=== PATIENT | male | born 1950 | race Caucasian/White ===

== ENCOUNTER 2018-04-23 14:51 | Inpatient (IN) | payer OTHER ==
[2018-04-23] MEDS ORDERED: METOPROLOL TARTRATE 5 MG/5 ML INJ IV ONE (15:12)
[2018-04-23] MEDS ORDERED: NA CHLORIDE 0.9% 1,000 ML ONE ×2 (15:19→18:54)
--- NOTE | 2018-04-23 15:33 | EKG ---
Test Date: 2018-04-23 Test Time: 14:56:29 Executive Director: WILL MEASUREMENT RESULTS: Intervals: Rate: 123 IA: QRSD: 132 QT: 348 QTc: 498 [place]: P: IA: QRS: -53 T: 53 INTERPRETIVE STATEMENTS: Atrial fibrillation with rapid ventricular response Left axis deviation Right bundle branch block Abnormal ECG Compared to ECG 07/10/2017 15:02:35 Sinus bradycardia no longer present Myocardial infarct finding no longer present Electronically Signed On 04-23-18 15:32:49 [employer] by Se Erazo
--- NOTE | 2018-04-23 15:45 | RAD REPORT ---
EXAM DESCRIPTION: RAD - Chest Single View - 04/23/2018 3:39 pm CLINICAL HISTORY: palpitation Chest pain. COMPARISON: Chest Single View dated 07/10/2017; Chest Single View dated 01/28/2017; Chest Single View dated 11/30/2016; CHEST SINGLE VIEW dated 08/31/2011 FINDINGS: Portable technique limits examination quality. The lungs are grossly clear. The heart is normal in size. No displaced fractures. IMPRESSION: No acute intrathoracic process suspected.
[2018-04-23 15:58] LABS: Albumin 3.4 g/dL (3.4-5.0); Bilirubin Direct 0.6 mg/dL (0-0.2); Bilirubin Total 1.7 mg/dL (0.2-1.0); Magnesium 1.8 mg/dL (1.8-2.4); Potassium 4.3 mmol/L (3.5-5.1); Protein, Total 7.1 g/dL (6.4-8.2); Troponin (Emerg Dept Use Only) 0.02 ng/mL (0.0-0.045)
[2018-04-23] MEDS ORDERED: ENOXAPARIN 80 MG/0.8 ML SQ ONE (16:05)
[2018-04-23 16:08] LABS: Protime INR 1.13
--- NOTE | 2018-04-23 16:30 | EDPHYS ---
Physician Documentation [facility] Name: Noble Briscoe Age: 67 yrs Sex: Male : 1950 Arrival Date: 04/23/2018 Time: 14:58 Bed 17 Private MD: ED Physician aRgini Rothman HPI: 04/23 15:03 This 67 yrs old Male presents to ER via EMS with complaints of General ma2 Weakness. 15:03 Context: The symptoms occur with anxiety. Onset: The symptoms/episode began/occurred ma2 gradually, 1 week(s) ago. Duration: The patient or guardian reports a single episode, that is still ongoing, The patient or guardian reports multiple episodes. Associated signs and symptoms: Pertinent positives: anxiety, Pertinent negatives: chest pain, lightheadedness, nausea, SOB, syncope, near-syncope. Severity of symptoms: At their worst the symptoms were moderate in the emergency department the symptoms are unchanged. The patient has experienced similar episodes in the past. Historical: - Allergies: 15:02 No Known Allergies; em - Home Meds: 17:41 Xarelto 20 mg Oral tab 1 tab once daily [Active]; amiodarone 200 mg Oral tab 1 tab once em daily [Active]; - PMHx: 15:02 Atrial Fib; Cirrhosis; Depression; Hypertension; em - PSHx: 15:02 Ablation; em - Immunization history:: Adult Immunizations up to date. - Social history:: Smoking status: Patient uses tobacco products, smokes one pack cigarettes per day. Patient/guardian denies using alcohol, street drugs, The patient lives with family. - Ebola Screening: : Patient negative for fever greater than or equal to 101.5 degrees Fahrenheit, and additional compatible Ebola Virus Disease symptoms Patient denies exposure to infectious person Patient denies travel to an Ebola-affected area in the 21 days before illness onset No symptoms or risks identified at this time. - Family history:: not pertinent. ROS: 15:03 Constitutional: Negative for fever, chills, and weight loss, Respiratory: Negative for ma2 shortness of breath, cough, wheezing, and pleuritic chest pain, Abdomen/GI: Negative for abdominal pain, nausea, diarrhea, and constipation, Allergy/Immunology: Negative for hives, rash, and allergies, Endocrine: Negative for neck swelling, polydipsia, polyuria, polyphagia, and marked weight changes. 15:03 Cardiovascular: Positive for palpitations, Negative for chest pain, edema, orthopnea. Exam: 15:03 Constitutional: This is a well developed, well nourished patient who is awake, alert, ma2 and in no acute distress. Head/Face: Normocephalic, atraumatic. 15:03 Neck: Trachea midline, no thyromegaly or masses palpated, and no cervical lymphadenopathy. Supple, full range of motion without nuchal rigidity, or vertebral point tenderness. No Meningismus. Chest/axilla: Normal chest wall appearance and motion. Nontender with no deformity. No lesions are appreciated. Respiratory: Lungs have equal breath sounds bilaterally, clear to auscultation and percussion. No rales, rhonchi or wheezes noted. No increased work of breathing, no retractions or nasal flaring. Abdomen/GI: Soft, non-tender, with normal bowel sounds. No distension or tympany. No guarding or rebound. No evidence of tenderness throughout. Neuro: Awake and alert, GCS 15, oriented to person, place, time, and situation. Cranial nerves II-XII grossly intact. Motor strength 5/5 in all extremities. Sensory grossly intact. Cerebellar exam normal. Normal gait. 15:03 Cardiovascular: Rate: tachycardic, Rhythm: irregularly irregular, JVD: is not appreciated. Vital Signs: 15:05 BP 108 / 82; Pulse 131; Resp 18; Temp 99.1(O); Pulse Ox 96% on R/A; Weight 81.65 kg; em Height 5 ft. 11 in. (180.34 cm); Pain 5/10; 15:10 BP 84 / 63; Pulse 128; Resp 20; Pulse Ox 98% on R/A; aj1 15:36 BP 92 / 60; Pulse 131; Resp 26; Pulse Ox 97% ; aj1 15:46 BP 104 / 84; Pulse 135; Resp 20; Pulse Ox 96% on R/A; aj1 16:09 BP 131 / 81; Pulse 126; Resp 19; Pulse Ox 98% on R/A; aj1 16:28 BP 122 / 103; Pulse 131; Resp 20; Pulse Ox 96% on R/A; aj1 16:35 BP 131 / 76; Pulse 132; Resp 15; Pulse Ox 100% on R/A; aj1 16:40 BP 111 / 93; Pulse 126; Resp 19; Pulse Ox 99% on R/A; aj1 17:10 BP 93 / 78; Pulse 117; Resp 20; Pulse Ox 100% on R/A; aj1 17:41 BP 109 / 87; Pulse 128; Resp 20; Pulse Ox 97% on R/A; aj1 18:03 BP 92 / 70; Pulse 122; Resp 18; Pulse Ox 99% on R/A; aj1 18:20 BP 101 / 73; Pulse 125; Resp 18; Temp 98.7(O); Pulse Ox 98% on R/A; Pain 0/10; em 18:33 BP 86 / 66; Pulse 136; Resp 20; Pulse Ox 96% on R/A; aj1 19:00 BP 83 / 73; Pulse 131; Resp 24; Pulse Ox 97% on R/A; aj1 20:27 BP 92 / 70; Pulse 110; Resp 16; Pulse Ox 99% ; ea 21:40 BP 96 / 62; Pulse 109; Resp 18; Temp 97.6(TE); Pulse Ox 100% ; ea 15:05 Body Mass Index 25.10 (81.65 kg, 180.34 cm) em MDM: 15:02 Patient medically screened. [facility] 15:03 Differential diagnosis: arrythmia, dehydration, stress disorder. [facility] 16:28 Data reviewed: vital signs, nurses notes. Counseling: I had a detailed discussion with ma2 the patient and/or guardian regarding: the historical points, exam findings, and any diagnostic results supporting the discharge/admit diagnosis, the presence of at least one elevated blood pressure reading (>120/80) during this emergency department visit, the need for further work-up and treatment in the hospital. Response to treatment: the patient's symptoms have markedly improved after treatment. ED course: discussed with dr. rehman. 04/23 15:03 Order name: Basic Metabolic Panel; Complete Time: 16:16 [facility] 04/23 15:03 Order name: CBC with Diff [facility] 04/23 15:03 Order name: LFT's; Complete Time: 16:16 [facility] 04/23 15:03 Order name: Magnesium; Complete Time: 16:16 [facility] 04/23 15:03 Order name: NT PRO-BNP; Complete Time: 16:16 [facility] 04/23 15:03 Order name: PT-INR; Complete Time: 16:25 wy2 04/23 15:03 Order name: Troponin (emerg Dept Use Only); Complete Time: 16:16 [facility]2 04/23 15:03 Order name: XRAY Chest (1 view); Complete Time: 16:16 wy2 04/23 21:34 Order name: US EDAZ 04/23 21:41 Order name: Alcohol Serum/Plasma [facility] 04/23 21:48 Order name: T4 Free [facility] 04/23 21:48 Order name: Thyroid Stimulating Hormone [facility] 04/23 15:03 Order name: EKG; Complete Time: 15:05 [facility] 04/23 15:03 Order name: Cardiac monitoring; Complete Time: 15:07 [facility] 04/23 15:03 Order name: EKG - Nurse/Tech; Complete Time: 15:07 [facility] 04/23 15:03 Order name: IV Saline Lock; Complete Time: 15:07 [facility] 04/23 15:03 Order name: Labs collected and sent; Complete Time: 15:07 [facility] 04/23 15:03 Order name: O2 Per Protocol; Complete Time: 15:07 [facility] 04/23 15:03 Order name: O2 Sat Monitoring; Complete Time: 15:07 ma2 Administered Medications: 15:05 Drug: Metoprolol 5 mg Route: IVP; Site: right antecubital; aj1 15:11 Drug: NS 0.9% 1000 ml Route: IV; Rate: 1 bolus; Site: right antecubital; em 16:56 Follow up: IV Status: Completed infusion; IV Intake: 1000ml em 16:00 Drug: Lovenox 80 mg Route: Sub-Q; Site: right lower abdomen; em 16:56 Follow up: Response: No adverse reaction em 16:28 Drug: Metoprolol 5 mg Route: IVP; Site: left forearm; aj1 16:35 Drug: Metoprolol 5 mg Route: IVP; Site: left forearm; aj1 17:41 Drug: amiodarone 200 mg Route: PO; aj1 19:00 Follow up: Response: No adverse reaction ea 17:42 Drug: Valium 10 mg Route: PO; aj1 18:48 Drug: chlordiazePOXIDE 25 mg Route: PO; em 22:26 Follow up: Response: No adverse reaction ea 18:52 Drug: NS 0.9% 1000 ml Route: IV; Rate: 1 bolus; Site: right antecubital; em Disposition: 04/23/18 16:29 Hospitalization ordered by Luan Rehman for Observation. Preliminary diagnosis is Atrial fibrillation and flutter. - Bed requested for Intensive Care Unit. - Status is Observation. ea - Condition is Stable. - Problem is new. - Symptoms have improved. UTI on Admission? No Signatures: Dispatcher [employer] EDEdwina Rocha Angela RN RN aj1 Saim Hernadez, SHEET METAL WELDER SHEET METAL WELDER em Yulissa Richards, RN RN ph Amanda Gage RN Zunilda Cunningham RN RN ea Alzahri, Mohammad, MD MD ma2 Corrections: (The following items were deleted from the chart) 18:24 16:29 Hospitalization Ordered by Luan Rehman DO for Observation. Preliminary df diagnosis is Atrial fibrillation and flutter. Bed requested for Telemetry/MedSurg (observation). Status is Observation. Condition is Stable. Problem is new. Symptoms have improved. UTI on Admission? No. ma2 18:54 18:24 04/23/2018 16:29 Hospitalization Ordered by Luan Rehman DO for Observation. bd Preliminary diagnosis is Atrial fibrillation and flutter. Bed requested for Telemetry/MedSurg (observation). Status is Observation. Condition is Stable. Problem is new. Symptoms have improved. UTI on Admission? No. df 20:13 18:54 04/23/2018 16:29 Hospitalization Ordered by Luan Rehman DO for Observation. ph Preliminary diagnosis is Atrial fibrillation and flutter. Bed requested for Intensive Care Unit. Status is Observation. Condition is Stable. Problem is new. Symptoms have improved. UTI on Admission? No. bd 21:53 20:13 04/23/2018 16:29 Hospitalization Ordered by Luan Rehman DO for Observation. ea Preliminary diagnosis is Atrial fibrillation and flutter. Bed requested for Intensive Care Unit. Status is Observation. Condition is Stable. Problem is new. Symptoms have improved. UTI on Admission? No. ph
--- NOTE | 2018-04-23 16:30 | ER ---
Nurse's Notes [facility] Name: Noble Briscoe Age: 67 yrs Sex: Male : 1950 Arrival Date: 04/23/2018 Time: 14:58 Bed 17 Private MD: Diagnosis: Atrial fibrillation and flutter Presentation: 04/23 14:58 Presenting complaint: EMS states: called out for weakness, feeling SOB, and not feeling em well, EMS was unable to obtain BP, HR was ranging from 50-80's per EMS. Transition of care: patient was not received from another setting of care. Onset of symptoms was April 23, 2018. Risk Assessment: Do you want to hurt yourself or someone else? Patient reports no desire to harm self or others. Initial Sepsis Screen: Does the patient meet any 2 criteria? RR > 20 per min. Does the patient have a suspected source of infection? No. Patient's initial sepsis screen is negative. Care prior to arrival: None. 14:58 Method Of Arrival: EMS: [facility] em 15:08 Acuity: GILLIAN 2 hb Triage Assessment: 15:02 General: Appears uncomfortable, Behavior is calm, cooperative. Pain: Complains of pain em in left hip. Cardiovascular: Rhythm is atrial fibrillation with rapid ventricular response. Historical: - Allergies: 15:02 No Known Allergies; em - Home Meds: 17:41 Xarelto 20 mg Oral tab 1 tab once daily [Active]; amiodarone 200 mg Oral tab 1 tab once em daily [Active]; - PMHx: 15:02 Atrial Fib; Cirrhosis; Depression; Hypertension; em - PSHx: 15:02 Ablation; em - Immunization history:: Adult Immunizations up to date. - Social history:: Smoking status: Patient uses tobacco products, smokes one pack cigarettes per day. Patient/guardian denies using alcohol, street drugs, The patient lives with family. - Ebola Screening: : Patient negative for fever greater than or equal to 101.5 degrees Fahrenheit, and additional compatible Ebola Virus Disease symptoms Patient denies exposure to infectious person Patient denies travel to an Ebola-affected area in the 21 days before illness onset No symptoms or risks identified at this time. - Family history:: not pertinent. Screenin:06 Abuse screen: Denies threats or abuse. Nutritional screening: No deficits noted. em Tuberculosis screening: No symptoms or risk factors identified. Fall Risk None identified. Assessment: 15:05 General: Appears uncomfortable, Behavior is calm, cooperative, Reports feeling ill for em 12-24 hours. Pain: Complains of pain in pelvis. Neuro: Level of Consciousness is awake, alert, obeys commands, Oriented to person, place, time, situation, Reports dizziness, a syncopal episode. Cardiovascular: Reports fatigue, palpitations, shortness of breath, syncope, Denies chest pain, Patient's skin is warm and dry. Rhythm is atrial fibrillation with rapid ventricular response. Respiratory: Reports shortness of breath at rest Airway is patent Respiratory effort is even, unlabored, Respiratory pattern is regular, symmetrical, Breath sounds are clear bilaterally. GI: Abdomen is flat, Reports nausea, vomiting. : No signs and/or symptoms were reported regarding the genitourinary system. EENT: No signs and/or symptoms were reported regarding the EENT system. Derm: Skin is intact, is healthy with good turgor, Skin is pink, warm \\T\\ dry. 15:10 Reassessment: Patient given Lopressor 5 mg SIVP over 5 minutes, initial HR 130, initial aj1 BP 108/82. No change in heart rate or rhythm following administration of Lopressor. BP reassessed and measure 84/63. Patient reports dizziness, but states that it is unchanged since his arrival. Notified Dr. Bryant, order received to hold remaining doses of Lopressor and bolus IV fluids. Patient was instructed not to get out of bed and use call fox to notify staff of any needs, questions, or concerns. 15:15 Reassessment: I agree with previous assessment. 16:30 Reassessment: Dr. Sabillon at bedside to evaluate patient, notified Dr. Sabillon of aj1 patient's elevated heart rate. Patient may be admitted to the floor if HR is in the 120's per Dr. Sabillon. 17:08 Reassessment: Patient appears in no apparent distress at this time. Patient and/or em family updated on plan of care and expected duration. Pain level reassessed. Patient is alert, oriented x 3, equal unlabored respirations, skin warm/dry/pink. assisted pt to bedside commode, tolerated well, faxed medication order to pharmacy. 17:15 Reassessment: Patient appears in no apparent distress at this time. Patient and/or em family updated on plan of care and expected duration. Pain level reassessed. reports drinking about 7-8 drinks daily, has had withdrawals in the past. 17:40 Reassessment: Patient's hands are shaking, patient reports that he is a daily drinker, [facility] states he "drinks 7-8 beers per day". Notified Dr. Bryant. Order received. 18:21 Reassessment: Patient appears in no apparent distress at this time. Patient and/or em family updated on plan of care and expected duration. Pain level reassessed. Patient is alert, oriented x 3, equal unlabored respirations, skin warm/dry/pink. shaking has improved. 18:35 Reassessment: Notified Dr. Sabillon, pt's BP has been variable since patient arrived in [facility] ER, patient has had multiple episodes of diarrhea, states he has had diarrhea for the past month Order received to upgrade patient to ICU. 19:21 General: Appears uncomfortable, Behavior is calm, cooperative. Pain: Denies pain. ea Neuro: Level of Consciousness is awake, alert, obeys commands, Oriented to person, place, time, situation. Cardiovascular: Patient's skin is warm and dry. Respiratory: Airway is patent Respiratory effort is even, unlabored, Respiratory pattern is regular, symmetrical, Breath sounds are clear bilaterally. GI: Reports nausea, vomiting. EENT: No signs and/or symptoms were reported regarding the EENT system. Derm: Skin is pink, warm \\T\\ dry. 20:00 Reassessment: Patient and/or family updated on plan of care and expected duration. Pain ea level reassessed. Pt resting with eyes closed, respirations even and unlabored, chest expansions even and symmetrical. 21:03 Reassessment: Pt confused and anxious, ativan 1mg administered per IV, documented in ea meditech. Pt tolerated well. 21:40 Reassessment: Patient and/or family updated on plan of care and expected duration. Pain ea level reassessed. Patient is alert, oriented x 3, equal unlabored respirations, skin warm/dry/pink. Pt taken to ICU via stretcher per nurse and tech, tolerating well. Vital Signs: 15:05 BP 108 / 82; Pulse 131; Resp 18; Temp 99.1(O); Pulse Ox 96% on R/A; Weight 81.65 kg; em Height 5 ft. 11 in. (180.34 cm); Pain 5/10; 15:10 BP 84 / 63; Pulse 128; Resp 20; Pulse Ox 98% on R/A; aj1 15:36 BP 92 / 60; Pulse 131; Resp 26; Pulse Ox 97% ; aj1 15:46 BP 104 / 84; Pulse 135; Resp 20; Pulse Ox 96% on R/A; aj1 16:09 BP 131 / 81; Pulse 126; Resp 19; Pulse Ox 98% on R/A; aj1 16:28 BP 122 / 103; Pulse 131; Resp 20; Pulse Ox 96% on R/A; aj1 16:35 BP 131 / 76; Pulse 132; Resp 15; Pulse Ox 100% on R/A; aj1 16:40 BP 111 / 93; Pulse 126; Resp 19; Pulse Ox 99% on R/A; aj1 17:10 BP 93 / 78; Pulse 117; Resp 20; Pulse Ox 100% on R/A; aj1 17:41 BP 109 / 87; Pulse 128; Resp 20; Pulse Ox 97% on R/A; aj1 18:03 BP 92 / 70; Pulse 122; Resp 18; Pulse Ox 99% on R/A; aj1 18:20 BP 101 / 73; Pulse 125; Resp 18; Temp 98.7(O); Pulse Ox 98% on R/A; Pain 0/10; em 18:33 BP 86 / 66; Pulse 136; Resp 20; Pulse Ox 96% on R/A; aj1 19:00 BP 83 / 73; Pulse 131; Resp 24; Pulse Ox 97% on R/A; aj1 20:27 BP 92 / 70; Pulse 110; Resp 16; Pulse Ox 99% ; ea 21:40 BP 96 / 62; Pulse 109; Resp 18; Temp 97.6(TE); Pulse Ox 100% ; ea 15:05 Body Mass Index 25.10 (81.65 kg, 180.34 cm) em ED Course: 14:58 Patient arrived in ED. em 15:02 Ragini Rothman MD is Attending Physician. ma2 15:03 EKG done, by valve technician. reviewed by Ragini Rothman MD. sm3 15:05 Arm band placed on. em 15:06 Patient has correct armband on for positive identification. Bed in low position. Call em light in reach. Side rails up X2. monitoring analyst on. Pulse ox on. NIBP on. 15:07 Sami Hernadez LVN is Primary Nurse. em 15:08 Triage completed. hb 15:41 XRAY Chest (1 view) In Process Unspecified. EDMS 16:29 Luan Sabillon DO is Hospitalizing Provider. ma2 18:33 Primary Nurse role handed off by Sami Hernadez LVN aj1 18:33 Peyton Escalona RN is Primary Nurse. aj1 21:47 No provider procedures requiring assistance completed. Patient admitted, IV remains in ea place. Administered Medications: 15:05 Drug: Metoprolol 5 mg Route: IVP; Site: right antecubital; aj1 15:11 Drug: NS 0.9% 1000 ml Route: IV; Rate: 1 bolus; Site: right antecubital; em 16:56 Follow up: IV Status: Completed infusion; IV Intake: 1000ml em 16:00 Drug: Lovenox 80 mg Route: Sub-Q; Site: right lower abdomen; em 16:56 Follow up: Response: No adverse reaction em 16:28 Drug: Metoprolol 5 mg Route: IVP; Site: left forearm; aj1 16:35 Drug: Metoprolol 5 mg Route: IVP; Site: left forearm; aj1 17:41 Drug: amiodarone 200 mg Route: PO; aj1 19:00 Follow up: Response: No adverse reaction ea 17:42 Drug: Valium 10 mg Route: PO; aj1 18:48 Drug: chlordiazePOXIDE 25 mg Route: PO; em 22:26 Follow up: Response: No adverse reaction ea 18:52 Drug: NS 0.9% 1000 ml Route: IV; Rate: 1 bolus; Site: right antecubital; em Intake: 16:56 IV: 1000ml; Total: 1000ml. em Outcome: 16:29 Decision to Hospitalize by Provider. ma2 19:00 Instructed on the need for admit. ea 21:51 Admitted to ICU accompanied by nurse, accompanied by tech, via stretcher, room 1, on ea monitor, with chart, Report called to Ilda HILL 21:51 Condition: stable 21:53 Patient left the ED. ea Signatures: Dispatcher [employer] Peyton Quintero RN RN aj1 Sami Hernadez, CRANE FOLLOWER CRANE FOLLOWER em Jodi Smith, RN RN Zunilda Ivy RN RN ea Alzahri, Mohammad, MD MD ak2 Daily Caba 3 Corrections: (The following items were deleted from the chart) 15:34 15:10 Reassessment: Patient given Lopressor 5 mg SIVP over 5 minutes, initial HR 130, aj1 initial BP 108/82. No change in heart rate or rhythm following administration of Lopressor. BP reassessed and measure 84/65. Patient reports dizziness, but states that it is unchanged since his arrival. Notified Dr. Bryant, order received to hold remaining doses of Lopressor and bolus IV fluids. Patient was instructed not to get out of bed and use call fox to notify staff of any needs, questions, or concerns. aj1 18:42 18:35 Reassessment: Notified Dr. Sabillon, pt's BP has been variable since patient aj1 arrived in ER, patient has had multiple episodes of diarrhea, and he is still shaking despite administration of Valium. Order received to upgrade patient to ICU. aj1
[2018-04-23 16:43] LABS: Absolute Lymphocytes (CBC) 0.6 K/uL (0.7-4.9); Absolute Monocytes 0.6 K/uL (0.1-1.3); Absolute Neutrophil 4.2 K/uL (1.8-8.0); Basophils % 0.8 % (0-1.3); Eosinophils % 0.3 % (0-4.4); Hematocrit 43.9 % (39.6-49.0); Lymphocytes % 11.2 % (15.3-44.8); MPV 10.3 fL (7.6-11.3); Monocytes % 11.3 % (3.3-12.3); RBC Red Blood Cell Count 4.26 M/uL (4.33-5.43)
--- NOTE | 2018-04-23 17:02 | P.HP ---
Certification for Inpatient Patient admitted to: Observation With expected LOS: <2 Midnights Patient will require the following post-hospital care: Home Health Services Practitioner: I am a practitioner with admitting privileges, knowledge of patient current condition, hospital course, and medical plan of care. Services: Services provided to patient in accordance with Admission requirements found in Title 42 Section 412.3 of the Code of Federal Regulations Patient History Date of Service: 04/23/18 Primary Care Provider: none; Cardiology-Dr. Whitt([facility]) Reason for admission: Weakness History of Present Illness: 67-year-old male presented emergency room with weakness. Patient reports weakness over the last several days. Patient was found to have atrial fibrillation with RVR with a rate in the 140s. Patient with history of chronic atrial fibrillation, hypertension, alcohol and tobacco abuse. Patient was given IV metoprolol in the emergency room. Heart rate improved. Patient without any significant chest pain, shortness of breath or edema to the lower extremities. Patient reports compliance with medication but pharmacy was called to verify. Apparently his last bean picker for amiodarone and Xarelto was back in August of 2017. He was given a 3 month supply but no refills were obtained. Patient stable at this time. I was asked to admit the patient for observation. In the ER CBC pending at this time. Sodium 137, potassium 4.3. GFR of 60. Troponin 0.02. BNP 1900. Total bili room 1.7, AST 145. Chest x-ray unremarkable. When I saw the patient ER, he appeared disheveled. He reports his last alcohol drink was yesterday around 4:00 p.m.. He reports drinking about 7 beers a day. He also smokes regularly. Allergies No Known Allergies Allergy (Verified 01/28/17 20:51) Home medications list reviewed: Yes Home Medications: Amiodarone HCl [Cordarone] 200 mg PO DAILY #30 tablet 09/02/11 Carvedilol [Coreg*] 6.25 mg PO BID #60 tab 01/29/17 Folic Acid 1 mg PO DAILY #30 tablet 01/29/17 Lisinopril [Prinivil*] 20 mg PO DAILY #30 tab 01/29/17 Multivitamin [One-Daily Multi-Vitamin] 1 each PO DAILY #30 tablet 01/29/17 Rivaroxaban [Xarelto*] 20 mg PO DAILY #60 tablet 01/29/17 Thiamine HCl [Vitamin B-1*] 100 mg PO DAILY #30 tablet 01/29/17 - Past Medical/Surgical History Diabetic: No -: Depression -: Chronic atrial fibrillation on chronic anti coagulation therapy -: HTN -: Alcohol abuse -: Tobacco abuse -: Noncompliance with medication and follow up -: Cardiac ablation Psychosocial/ Personal History: Patient lives by himself. He has no family in the area. - Family History Family History: Reviewed- Non-Contributory - Social History Smoking Status: Heavy Tobacco smoker (>10 cigarettes/day) Counseled patient to stop smoking for: less than 10 minutes Smoking therapy provided: Yes Patient receptive to therapy: No Alcohol use: Yes CD- Drugs: No Caffeine use: No Place of Residence: Home Review of Systems General: Weakness, As per HPI Eyes: Unremarkable ENT: Unremarkable Respiratory: Unremarkable Cardiovascular: As per HPI Gastrointestinal: Unremarkable Genitourinary: Unremarkable Musculoskeletal: Unremarkable Integumentary: Unremarkable Neurological: Weakness, As per HPI Lymphatics: Unremarkable Physical Examination - Physical Exam General: Alert, In no apparent distress, Oriented x3, Cooperative HEENT: Atraumatic, Normocephalic, PERRLA, Other (Dry mucous membranes) Neck: Supple, No Thyromegaly Respiratory: Clear to auscultation bilaterally, Normal air movement Cardiovascular: Irregular heart rate/rhythm (Atrial fibrillation, rate around 120) Gastrointestinal: Normal bowel sounds, Soft and benign, Non-distended, No tenderness, No masses, No rebound, No guarding Musculoskeletal: No erythema, No tenderness, No warmth Integumentary: No tenderness/swelling, No erythema, No warmth, No cyanosis Neurological: Normal speech, Normal strength at 5/5 x4 extr, Normal tone, Normal affect - Studies Laboratory Data (last 24 hrs) 04/23/18 15:20: PT 13.4 H, INR 1.13 04/23/18 15:20: Sodium 137, Potassium 4.3, BUN 9, Creatinine 1.20, Glucose 134 H , Magnesium 1.8, Total Bilirubin 1.7 H, AST 149 H, ALT 44, Alkaline Phosphatase 115 Assessment and Plan - Plan Impression: Chronic atrial fibrillation with RVR with history of ablation, chronic anti coagulation therapy and noncompliance with medication/follow up Mild dehydration Hypertension Alcohol abuse Tobacco abuse GERD Suspect COPD Mild malnutrition Elevated liver function Plan: Chronic atrial fibrillation with RVR with history of ablation, chronic anti coagulation therapy and noncompliance with medication/follow up: Will observe patient closely. Will restart amiodarone 200 mg daily. Will also start his Xarelto at 15 mg daily. Will try to obtain his other home medications. Patient may require beta-rosanne therapy or PILO-inhibitor. Will check echocardiogram. Compliance and follow up will be addressed in detail. Will check echocardiogram. Will consult cardiology for further recommendations. Will have social services designee consulted for possible help with medications and follow up. Mild dehydration: Will start low-dose IV fluids. Hypertension: Will monitor closely. Patient may require blood pressure medication. Patient has use lisinopril and carvedilol in the past. Alcohol abuse: Patient admits to alcohol use. His last use was for at 4:00 p.m. yesterday. He drinks about 7 beers a day. Will start Librium. Will monitor for alcohol withdrawal. Will also start folic acid and thiamine. Will check urine drug screen and alcohol level. Tobacco abuse: Will provide nicotine patch. Suspect COPD: Will start Brovana. GERD: Will start Protonix. Mild malnutrition: Will provide vitamin supplementation and IV fluids. Will monitor closely. Encourage oral intake. Elevated liver function: Will check for hepatitis panel and HIV. Will also evaluate abdominal ultrasound for underlying possible liver disease. Discharge Plan: Home Plan to discharge in: 24 Hours - Advance Directives Does patient have a Living Will: No Does patient have a Durable POA for Healthcare: No - Code Status/Comfort Care Code Status Assessed: Yes (Patient is DNR.) Time Spent Managing Pts Care (In Minutes): 55
[2018-04-23] MEDS ORDERED: DIAZEPAM 5 MG TABLET ONE (17:45)
[2018-04-23] MEDS ORDERED: AMIODARONE HCL 200 MG TAB PO ONE (18:00)
[2018-04-23] MEDS ORDERED: chlordiazePOXIDE HCl 25 MG CAP ONE (18:54)
[2018-04-23] MEDS ORDERED: IPRATROPIUM BROM 0.5MG/2.5ML NEB PRN (20:34)
[2018-04-23] MEDS: chlordiazePOXIDE HCl 25 MG CAP PO SCH (20:34)
[2018-04-23] MEDS ORDERED: ACETAMINOPHEN 500 MG TAB PO PRN (20:34)
[2018-04-23] MEDS ORDERED: METOPROLOL TARTRATE 5 MG/5 ML INJ IV PRN (20:34)
[2018-04-23] MEDS ORDERED: ONDANSETRON 4 MG/2 ML VIAL IV PRN (20:34)
[2018-04-23] MEDS ORDERED: NA CHLORIDE 0.9% 1,000 ML IV SCH (20:34)
[2018-04-23] MEDS: LORazepam 2 MG/ML VIAL IV PRN (21:03)
--- NOTE | 2018-04-23 21:33 | RAD REPORT ---
EXAM DESCRIPTION: US - Abdomen Exam Limited - 04/23/2018 9:27 pm CLINICAL HISTORY: Elevated liver function, Evaluate for liver dz COMPARISON: No comparisons FINDINGS: The gallbladder demonstrates several shadowing gallstones. No pericholecystic fluid or gal lbladder wall thickening. The common bile duct is normal measuring 4 mm. The liver demonstrates diffuse fatty infiltration. IMPRESSION: Cholelithiasis. Fatty liver.
[2018-04-23 21:47] LABS: Thyroid Stimulating Hormone 1.48 uIU/mL (0.360-3.740)
[2018-04-23] MEDS: ARFORMOTEROL TARTRATE 15 MCG/2 ML VIAL.NEB NEB SCH (22:10)
[2018-04-23 22:32] LABS: CKMB Creatine Kinase MB 1.2 ng/mL (0.3-3.6); Troponin I 0.02 ng/mL (0.0-0.045)
[2018-04-23] MEDS: RIVAROXABAN 15 MG TABLET PO SCH (23:18)
[2018-04-24] MEDS: chlordiazePOXIDE HCl 25 MG CAP PO SCH ×5 (00:35→20:23)
[2018-04-24 05:16] LABS: Absolute Lymphocytes (CBC) 1.5 K/uL (0.7-4.9); Absolute Monocytes 0.4 K/uL (0.1-1.3); Absolute Neutrophil 2.5 K/uL (1.8-8.0); Basophils % 1.2 % (0-1.3); Eosinophils % 2.6 % (0-4.4); Hematocrit 43.8 % (39.6-49.0); Lymphocytes % 32.1 % (15.3-44.8); MPV 10.1 fL (7.6-11.3); Monocytes % 9.8 % (3.3-12.3); RBC Red Blood Cell Count 4.25 M/uL (4.33-5.43)
[2018-04-24 05:34] LABS: CKMB Creatine Kinase MB 1.4 ng/mL (0.3-3.6); Troponin I 0.02 ng/mL (0.0-0.045)
[2018-04-24 05:35] LABS: Albumin 2.8 g/dL (3.4-5.0); Bilirubin Total 1.3 mg/dL (0.2-1.0); Magnesium 1.6 mg/dL (1.8-2.4); Potassium 3.4 mmol/L (3.5-5.1); Protein, Total 5.8 g/dL (6.4-8.2)
[2018-04-24] MEDS ORDERED: MAGNESIUM SULFATE 1 gm IVPB 1 GM/100 ML BAG IV ONE (06:14)
[2018-04-24] MEDS ORDERED: POTASSIUM CL SA 10 MEQ TAB PO ONE (06:16)
[2018-04-24] MEDS: PANTOPRAZOLE 40MG TABLET PO SCH (06:40)
[2018-04-24] MEDS ORDERED: LOPERAMIDE HCL 2 MG CAPSULE PO PRN (07:17)
[2018-04-24] MEDS: NA CHLORIDE 0.9% 1,000 ML IV SCH ×2 (08:00→09:51)
[2018-04-24] MEDS ORDERED: PNEUMOCOCCAL VACCINE 0.5 ML IMVAC ONE (08:00)
[2018-04-24] MEDS: ARFORMOTEROL TARTRATE 15 MCG/2 ML VIAL.NEB NEB SCH ×2 (08:05→20:00)
[2018-04-24] MEDS ORDERED: AMIODARONE HCL 200 MG TAB PO SCH (09:00)
[2018-04-24 09:09] LABS: Urine Appearance CLEAR; Urine Blood NEGATIVE (NEG); Urine Color DK YELLOW; Urine Glucose NEGATIVE (NEG); Urine Protein NEGATIVE (NEG); Urine Specific Gravity 1.015 (1.005-1.030)
[2018-04-24] MEDS: LACTOBACILLUS/ACIDOPHILUS TAB PO SCH ×2 (09:50→20:23)
[2018-04-24] MEDS: THIAMINE HCL 100 MG TABLET PO SCH (09:50)
[2018-04-24] MEDS: FOLIC ACID 1 MG TABLET PO SCH (09:50)
[2018-04-24] MEDS: NICOTINE 21 MG/PAT TD SCH (09:50)
[2018-04-24 11:25] LABS: Urine Bilirubin NEGATIVE (NEG); Urine Microscopic Reflex ORDER UMIC
[2018-04-24 11:26] LABS: Urine Amorphous Sediment 1+ /HPF (NONE SEEN); Urine Bacteria 20-50 /HPF (NONE SEEN); Urine Culture Reflex Order REFLEXED; Urine RBC <5 /HPF (NONE SEEN)
[2018-04-24 11:28] LABS: Barbiturates NEGATIVE (NEGATIVE); Benzodiazepines POSITIVE (NEGATIVE); Cocaine NEGATIVE (NEGATIVE); METHAMPHETAM NEGATIVE (NEGATIVE); Methadone NEGATIVE (NEGATIVE); Opiates NEGATIVE (NEGATIVE); Phencyclidine NEGATIVE (NEGATIVE); THC Cannibis NEGATIVE (NEGATIVE)
--- NOTE | 2018-04-24 12:23 | CON ---
CARDIOLOGY CONSULT History Of Present Illness: Mr. Briscoe is 67. He is brought to the I believe the main re ason was because of suicidal ideation. He is known to be in atrial fib. Five years ago, he had an a blation that was in another institution and for at least the last 7 months, he has not taken any medi cines. He spent more than a month in a hospital for suicide prevention in the past and is again drin carlos heavily, becoming very depressed and he is in AFib. The AFib appears to be chronic. I do not t hink he has been in the sinus rhythm at all. His heart rate has been quite fast. He is on Xarelto n ow. As an outpatient, he was not taking any of that. He has never had a vascular disease of any kin d. Social History: He does use tobacco, 7 or more alcoholic beverages per day. Medications: Although medications are prescribed, there are none that he has been taking. He has an official do not resuscitate order. Physical Examination: Vital Signs: 5 feet 11 inches, 169 pounds. General: Disheveled, unkempt, alert, oriented, pleasant. HEENT: Unremarkable. Lungs: Clear. Heart: Fairly regular, although it is AFib. Plan: I would recommend we use a beta-rosanne to control his heart rate and avoid amiodarone. I thi nk amiodarone in this situation is dangerous. It is very toxic to the liver and in combination with heavy alcohol use, it is considered extremely dangerous, so I have taken a liberty of stopping amioda sophia. If his heart rate goes up, we can give him beta-blockers, will probably need a small dose and anticoagulating here in the hospital is fine. As an outpatient, I would not trust him to use the ant icoagulants appropriately. He has basically said he is planning his suicide, so if he is in a hospit al situation, we can continue to give rivaroxaban 15 mg per day, continue to give whatever dose of be ta rosanne or digoxin will control his heart rate, but I would avoid amiodarone in Mr. Briscoe's case. HUBER/THANHL Voice ID: [id number] Report ID: [id number]
--- NOTE | 2018-04-24 13:24 | ECHO ---
HEIGHT: 5 ft 11 in WEIGHT: 169 lb 0 oz DATE OF STUDY: 04/24/[address]: Luan Sabillon DO 2-DIMENSIONAL: YES M.MODE: YES DOPPLER: YES COLOR FLOW: YES TDS: NO PORTABLE: YES DEFINITY: NO BUBBLE STUDY: NO DIAGNOSIS: ATRIAL FIBRILLATION CARDIAC HISTORY: CATHERIZATION: YES SURGERY: NO PROSTHETIC VALVE: NO PACEMAKER: NO MEASUREMENTS (cm) DIASTOLIC (NORMALS) SYSTOLIC (NORMALS) IVSd 0.9 (0.6-1.2) LA Diam 3.4 (1.9-4.0) LVEF 77% LVIDd 2.9 (3.5-5.7) LVIDs 1.6 (2.0-3.5) %FS 44% LVPWd 1.0 (0.6-1.2) Ao Diam 3.0 (2.0-3.7) 2 DIMENSIONAL ASSESSMENT: RIGHT ATRIUM: NORMAL LEFT ATRIUM: NORMAL RIGHT VENTRICLE: NORMAL LEFT VENTRICLE: NORMAL TRICUSPID VALVE: NORMAL MITRAL VALVE: NORMAL PULMONIC VALVE: NORMAL AORTIC VALVE: NORMAL PERICARDIAL EFFUSION: NONE AORTIC ROOT: NORMAL LEFT VENTRICULAR WALL MOTION: NORMAL. DOPPLER/COLOR FLOW: NORMAL. COMMENTS: NORMAL 2D ECHO WITH DOPPLER. SINUS RHYTHM. TECHNOLOGIST: ZULMA PRASAD
--- NOTE | 2018-04-24 13:36 | P.PN ---
Subjective Date of Service: 04/24/18 Primary Care Provider: none; Cardiology-Dr. Whitt([facility]) Chief Complaint: Weakness Subjective: Other (Nurses report patient had diarrhea. Cultures obtained. Nurses also report patient is suicidal. Patient admits being suicidal. He has a plan but has not initiated it.) Physical Examination - Vital Signs Temperature: 97.4 F Blood Pressure: 118/63 Pulse: 76 Respirations: 15 Pulse Ox (%): 100 - Physical Exam General: Alert, In no apparent distress, Oriented x3, Cooperative HEENT: Atraumatic Neck: Supple Respiratory: Clear to auscultation bilaterally, Normal air movement Cardiovascular: Normal pulses, Regular rate/rhythm Gastrointestinal: Normal bowel sounds, Soft and benign, Non-distended, No tenderness, No masses, No rebound, No guarding Musculoskeletal: No erythema, No tenderness, No warmth Integumentary: No tenderness/swelling, No erythema, No warmth, No cyanosis Neurological: Normal speech, Normal strength at 5/5 x4 extr, Normal tone, Normal affect - Studies Laboratory Data (last 24 hrs) 04/24/18 04:59: Troponin I 0.02 04/24/18 04:59: Sodium 140, Potassium 3.4 L, BUN 10, Creatinine 0.89, Glucose 80 , Magnesium 1.6 L, Total Bilirubin 1.3 H, AST 92 H, ALT 33, Alkaline Phosphatase 80, Triglycerides 211 H, Cholesterol 132, HDL Cholesterol 43, Cholesterol/HDL Ratio 3.07 04/24/18 04:59: WBC 4.6 D, Hgb 15.2, Hct 43.8, Plt Count 100 L 04/23/18 22:04: Troponin I 0.02 04/23/18 16:15: WBC 5.5, Hgb 15.4, Hct 43.9, Plt Count 104 L 04/23/18 15:20: PT 13.4 H, INR 1.13 04/23/18 15:20: Sodium 137, Potassium 4.3, BUN 9, Creatinine 1.20, Glucose 134 H , Magnesium 1.8, Total Bilirubin 1.7 H, AST 149 H, ALT 44, Alkaline Phosphatase 115 Microbiology Data (last 24 hrs): 04/23/18 23:45 Stool Clostridium difficile Toxin Assay - Final Medications List Reviewed: Yes Assessment & Plan Discharge Plan: Psychiatry Plan to discharge in: 24 Hours Physician Review Additional Text: Impression: Chronic atrial fibrillation with RVR with history of ablation, chronic anti coagulation therapy and noncompliance with medication/follow up Mild dehydration Diarrhea likely viral Suicidal ideation Hypertension Alcohol abuse Tobacco abuse GERD Suspect COPD Mild malnutrition Elevated liver function secondary to fatty liver and alcohol abuse Asymptomatic bacteriuria Plan: Chronic atrial fibrillation with RVR with history of ablation, chronic anti coagulation therapy and noncompliance with medication/follow up: Patient now in normal sinus rhythm. Cardiology has evaluated patient. Cardiology recommends to discontinue amiodarone due to his noncompliance and alcohol abuse. Cardiology further recommends to continue with anti coagulation therapy only in hospital setting. Due to the patient's poor compliance and current suicide ideation, chronic anti coagulation therapy is not recommended. Blood pressure stable this time. Will monitor closely. Cardiology recommends to continue with beta-rosanne for rate control if required. Will check to see the patient will require medication. Patient admits being suicidal. Will have licensed master social worker evaluate patient. Patient may require psychiatric evaluation and transfer once medically stable. Anticipate stability within 24 hr. Mild dehydration: Will continue to adjust IV fluids. Hypertension: Will monitor closely. As recommended above patient may require beta-rosanne therapy. Blood pressure stable this time. If elevated will start metoprolol on a regular basis. Alcohol abuse: Patient admits to alcohol use. Patient currently on Librium. Stable this time. No severe alcohol withdrawal symptoms at this time. Tobacco abuse: Will provide nicotine patch. Suspect COPD: Will continue with COPD medication. Patient will require medication at discharge. GERD: Will continue with Protonix Mild malnutrition: Will provide vitamin supplementation and IV fluids. Will monitor closely. Encourage oral intake. Elevated liver function secondary to fatty liver and alcohol abuse: Abdominal ultrasound shows no evidence of cirrhosis. Elevated liver function likely related to fatty liver and alcohol abuse. Hepatitis panel and HIV panel pending. Diarrhea likely viral: Will start pro biotics and provide medication as needed. C diff culture negative. Asymptomatic bacteriuria: No need for antibiotic treatment at this time. UTI prevention will be provided Time Spent Managing Pts Care (In Minutes): 55
[2018-04-24] MEDS: NACHLORIDE 0.45% 1,000 ML IV SCH (14:09)
[2018-04-24] MEDS ORDERED: POTASSIUM 25 MEQ EFFERV TAB PO ONE (17:29)
[2018-04-24] MEDS: RIVAROXABAN 15 MG TABLET PO SCH (17:47)
[2018-04-24] MEDS: LORazepam 2 MG/ML VIAL IV PRN (22:16)
[2018-04-25] MEDS ORDERED: LORazepam 2 MG/ML VIAL IV STA (01:51)
[2018-04-25] MEDS ORDERED: ZIPRASIDONE MESYLA 20 MG/VIAL IM STA (02:20)
[2018-04-25] MEDS ORDERED: WATER FOR INJ,STERILE 10 ML IM PRN (02:28)
[2018-04-25] MEDS ORDERED: ZIPRASIDONE MESYLA 20 MG/VIAL IM ONE (02:30)
[2018-04-25] MEDS ORDERED: WATER FOR INJ,STERILE 10 ML ONE (02:31)
[2018-04-25] MEDS: NACHLORIDE 0.45% 1,000 ML IV SCH ×2 (03:23→17:11)
[2018-04-25 05:20] LABS: Absolute Monocytes 0.4 K/uL (0.1-1.3); Absolute Neutrophil 2.2 K/uL (1.8-8.0); Basophils % 0.8 % (0-1.3); Hematocrit 38.8 % (39.6-49.0); Lymphocytes % 26.2 % (15.3-44.8); MPV 10.5 fL (7.6-11.3); Monocytes % 11.5 % (3.3-12.3); RBC Red Blood Cell Count 3.74 M/uL (4.33-5.43)
[2018-04-25 05:28] LABS: BUN Blood Urea Nitrogen 7 mg/dL (7-18); Bicarbonate 26 mmol/L (21-32); Glucose Level 102 mg/dL (74-106); Magnesium 1.6 mg/dL (1.8-2.4); Sodium Level 140 mmol/L (136-145)
[2018-04-25] MEDS ORDERED: POTASSIUM 25 MEQ EFFERV TAB PO STA (05:41)
[2018-04-25] MEDS ORDERED: MAGNESIUM SULFATE 1 gm IVPB 1 GM/100 ML BAG IV ONE (06:30)
[2018-04-25] MEDS: PANTOPRAZOLE 40MG TABLET PO SCH (06:38)
[2018-04-25 07:26] LABS: Blood Morphology Comment NOT SEEN (NOT SEEN); Platelet Estimate DECR; Urine White Blood Cell Casts OK
[2018-04-25] MEDS: ARFORMOTEROL TARTRATE 15 MCG/2 ML VIAL.NEB NEB SCH ×2 (07:55→19:40)
[2018-04-25] MEDS: LACTOBACILLUS/ACIDOPHILUS TAB PO SCH ×2 (09:00→20:24)
[2018-04-25] MEDS: METOPROLOL TAR 50 MG TAB PO SCH ×2 (09:00→13:26)
[2018-04-25] MEDS: THIAMINE HCL 100 MG TABLET PO SCH (09:00)
[2018-04-25] MEDS: FOLIC ACID 1 MG TABLET PO SCH (09:00)
[2018-04-25] MEDS: chlordiazePOXIDE HCl 25 MG CAP PO SCH ×2 (09:00→13:26)
[2018-04-25] MEDS: NICOTINE 21 MG/PAT TD SCH (11:23)
--- NOTE | 2018-04-25 14:08 | P.PN ---
Subjective Date of Service: 04/25/18 Primary Care Provider: none; Cardiology-Dr. Whitt([facility]) Chief Complaint: Weakness Subjective: Other (Patient doing well this time. In sinus rhythm. Patient was given Geodon last night due to agitation.) Physical Examination - Vital Signs Temperature: 98.7 F Blood Pressure: 138/96 Pulse: 65 Respirations: 16 Pulse Ox (%): 98 - Physical Exam General: Alert, In no apparent distress, Cooperative HEENT: Atraumatic Neck: Supple Respiratory: Clear to auscultation bilaterally, Normal air movement Cardiovascular: Normal pulses, Regular rate/rhythm Gastrointestinal: Normal bowel sounds, Soft and benign, Non-distended, No masses , No rebound, No guarding Musculoskeletal: No erythema, No tenderness, No warmth Integumentary: No tenderness/swelling, No erythema, No warmth, No cyanosis Neurological: Normal speech, Normal strength at 5/5 x4 extr, Normal tone, Normal affect - Studies Microbiology Data (last 24 hrs): 04/23/18 23:45 Stool Clostridium difficile Toxin Assay - Final Medications List Reviewed: Yes Assessment & Plan Discharge Plan: Home Plan to discharge in: 48 Hours Physician Review Additional Text: Impression: Chronic atrial fibrillation with RVR with history of ablation, chronic anti coagulation therapy and noncompliance with medication/follow up Mild dehydration Diarrhea likely viral Hypertension Alcohol abuse with agitation Tobacco abuse GERD Suspect COPD Mild malnutrition Elevated liver function secondary to fatty liver and alcohol abuse Asymptomatic bacteriuria Plan: Chronic atrial fibrillation with RVR with history of ablation, chronic anti coagulation therapy and noncompliance with medication/follow up: Patient now in normal sinus rhythm. Cardiology has evaluated patient. Cardiology recommends to discontinue amiodarone due to his noncompliance and alcohol abuse. Cardiology further recommends to continue with anti coagulation therapy only in hospital setting. Due to the patient's poor compliance, chronic anti coagulation therapy is not recommended. Blood pressure stable this time. Metoprolol 25 mg 1 pill twice daily added. tax services professional has evaluated patient. Patient no longer suicidal. tax services professional reports suicide ideation has been chronic likely from underlying depression. Will continue to monitor closely. No need for psychiatric evaluation or transfer. Will ambulate patient. Will consider discharge in the next 1-2 days. Patient will likely require home health and physical therapy at discharge. Will have physical therapy assess ambulation. Will need to further assess fall safety prior to discharge. Mild dehydration: Will continue to adjust IV fluids. Hypertension: Will monitor closely. Will add metoprolol 25 mg 1 pill twice daily. Alcohol abuse with agitation: Patient had agitation last night. Patient required geodon. Will monitor closely. Patient admits to alcohol use. Patient currently on Librium. Will decrease Librium to twice daily. Stable this time. No severe alcohol withdrawal symptoms at this time. Will continue with thiamine and folate orally. Tobacco abuse: Will provide nicotine patch. Suspect COPD: Will continue with COPD medication. Patient will require medication at discharge. GERD: Will continue with Protonix Mild malnutrition: Will provide vitamin supplementation and IV fluids. Will monitor closely. Encourage oral intake. Elevated liver function secondary to fatty liver and alcohol abuse: Abdominal ultrasound shows no evidence of cirrhosis. Elevated liver function likely related to fatty liver and alcohol abuse. Hepatitis panel and HIV panel pending. Diarrhea likely viral: Will continue with pro biotics and provide medication as needed. C diff culture negative. Asymptomatic bacteriuria: No need for antibiotic treatment at this time. Urine culture shows mixed luke. UTI prevention will be provided Time Spent Managing Pts Care (In Minutes): 55
--- NOTE | 2018-04-25 14:12 | PN ---
Mr. Briscoe is going through DTs. He is delirious and tremulous, but he is in sinus rhythm and this i s without using any amiodarone. The amount of amiodarone he got could really not be the attributable cause of him resuming sinus rhythm. A low-dose beta-rosanne is the best thing with him going throug h DTs and being a heavy alcohol user. HUBER/JAVI Voice ID: [id number] Report ID: [id number]
[2018-04-25] MEDS: RIVAROXABAN 15 MG TABLET PO SCH (17:11)
[2018-04-25] MEDS ORDERED: NOREPINEPHRINE 4 MG in D5W 250 ML IV PRN (17:23)
[2018-04-25] MEDS: POTASSIUM CL SA 10 MEQ TAB PO ONE ×2 (18:22→18:32)
[2018-04-25] MEDS: KCL 20 MEQ/100 mL IVPB 20 MEQ/100 ML BAG IV SCH ×2 (18:53→20:25)
[2018-04-25] MEDS ORDERED: chlordiazePOXIDE HCl 25 MG CAP PO SCH (21:00)
[2018-04-25] MEDS ORDERED: METOPROLOL TAR 25 MG TAB PO SCH (21:00)
[2018-04-25] MEDS: LORazepam 2 MG/ML VIAL IV PRN (22:24)
[2018-04-25] MEDS ORDERED: ACETAMINOPHEN 650MG/RECT SUPP PR PRN (22:59)
--- NOTE | 2018-04-25 23:18 | P.PN ---
Date of Service: 04/25/18 I was called because the patient become confused, had hallucinations, temp was 100.7 F, tachycardic and 195/84, HR 130 bpm. The clinical findings are consistent with delirium tremens. I will transfer the patient back to ICU for close monitoring and start appropriate treatment.
[2018-04-25] MEDS ORDERED: FLUMAZENIL 0.1 MG/ML (5 mL VIAL) IV PRN (23:30)
[2018-04-25] MEDS ORDERED: HALOPERIDOL LACT 5 MG/ML INJ IM PRN (23:30)
[2018-04-25] MEDS ORDERED: D5 0.9 NS 1,000 ML IV SCH (23:45)
[2018-04-26] MEDS: LORazepam 2 MG/ML VIAL IV PRN ×2 (01:07→03:15)
[2018-04-26 03:19] LABS: Absolute Lymphocytes (CBC) 0.9 K/uL (0.7-4.9); Absolute Monocytes 0.6 K/uL (0.1-1.3); Absolute Neutrophil 3.4 K/uL (1.8-8.0); Basophils % 0.9 % (0-1.3); Eosinophils % 1.5 % (0-4.4); Hematocrit 40.2 % (39.6-49.0); Lymphocytes % 18.7 % (15.3-44.8); MPV 10.4 fL (7.6-11.3); RBC Red Blood Cell Count 3.91 M/uL (4.33-5.43)
[2018-04-26 03:35] LABS: BUN Blood Urea Nitrogen 4 mg/dL (7-18); Bicarbonate 25 mmol/L (21-32); Glucose Level 104 mg/dL (74-106); Magnesium 1.6 mg/dL (1.8-2.4); Potassium 3.4 mmol/L (3.5-5.1); Sodium Level 142 mmol/L (136-145)
[2018-04-26] MEDS ORDERED: MAGNESIUM SULFATE 1 gm IVPB 1 GM/100 ML BAG IV ONE (03:58)
[2018-04-26] MEDS: KCL 20 MEQ/100 mL IVPB 20 MEQ/100 ML BAG IV SCH ×2 (04:54→06:20)
[2018-04-26] MEDS ORDERED: FUROSEMIDE 40 MG/4 ML VIAL IV ONE (07:16)
[2018-04-26] MEDS ORDERED: FUROSEMIDE 40 MG/4 ML VIAL ONE (07:26)
[2018-04-26] MEDS: ARFORMOTEROL TARTRATE 15 MCG/2 ML VIAL.NEB NEB SCH ×2 (08:10→19:55)
[2018-04-26] MEDS ORDERED: LORazepam 2 MG/ML VIAL IV PRN (08:35)
[2018-04-26] MEDS ORDERED: HALOPERIDOL LACT 5 MG/ML INJ IV PRN (08:35)
--- NOTE | 2018-04-26 08:35 | P.PN ---
Subjective Date of Service: 04/26/18 Primary Care Provider: none; Cardiology-Dr. Whitt([facility]) Chief Complaint: Weakness Subjective: Other (Patient with increase congestion today. Patient was started on IV fluids and given Ativan last night.) Physical Examination - Vital Signs Temperature: 97.2 F Blood Pressure: 158/104 Pulse: 55 Respirations: 16 Pulse Ox (%): 100 - Physical Exam General: Alert, In no apparent distress, Cooperative HEENT: Atraumatic Neck: Supple Respiratory: Crackles/rales (Crackles to the bases) Cardiovascular: Normal pulses, Regular rate/rhythm Gastrointestinal: Normal bowel sounds, Soft and benign, Non-distended, No tenderness, No masses, No rebound, No guarding Musculoskeletal: No erythema, No tenderness, No warmth Integumentary: No tenderness/swelling, No erythema, No warmth, No cyanosis Neurological: Normal speech, Normal strength at 5/5 x4 extr, Normal tone, Normal affect - Studies Medications List Reviewed: Yes Assessment & Plan Discharge Plan: Other (long-term facility) Plan to discharge in: 48 Hours Physician Review Additional Text: Impression: Chronic atrial fibrillation with RVR with history of ablation, chronic anti coagulation therapy and noncompliance with medication/follow up Mild pulmonary edema Diarrhea likely viral Hypertension Alcohol abuse with agitation Tobacco abuse GERD Suspect COPD Mild malnutrition Elevated liver function secondary to fatty liver and alcohol abuse Asymptomatic bacteriuria Plan: Chronic atrial fibrillation with RVR with history of ablation, chronic anti coagulation therapy and noncompliance with medication/follow up: Patient had some agitation last night. IV fluids was initiated. Patient given Ativan. Patient this morning had congestion. Clinically appears to have some pulmonary edema. Patient given Lasix 40 mg x1. IV fluids.. Will check x-ray. Wean off oxygen. Agitation likely from versus withdrawal. Will continue monitor closely. As previous, Cardiology recommends to discontinue amiodarone due to his noncompliance and alcohol abuse. Cardiology further recommends to continue with anti coagulation therapy only in hospital setting. Due to the patient's poor compliance, chronic anti coagulation therapy is not recommended. Blood pressure stable this time. Patient now on metoprolol 12 25 mg 1 pill twice daily for rate control. Will discuss with social worker delinquency prevention about skilled placement for the patient. Mild pulmonary edema: Will Dc IV fluids. Will provide the Lasix 40 mg x1. Will maintain sats above 90%. Will monitor closely.. Hypertension: Will monitor closely. Patient currently on metoprolol 25 mg 1 pill twice daily. If blood pressure remains elevated and will need to consider adding lisinopril. May need to adjust medication. Alcohol abuse with agitation: Patient had agitation again last night. Patient required Ativan. Will need to limit Ativan as this increases sedation. Will monitor closely. Agitation may be sundowning likely not withdrawal. Will monitor closely. Will continue with thiamine and folate. IV fluids discontinued. Tobacco abuse: Will provide nicotine patch. Suspect COPD: Will continue with COPD medication. Patient will require medication at discharge. GERD: Will continue with Protonix Mild malnutrition: Will provide vitamin supplementation. Will monitor closely. Encourage oral intake. Elevated liver function secondary to fatty liver and alcohol abuse: Abdominal ultrasound shows no evidence of cirrhosis. Elevated liver function likely related to fatty liver and alcohol abuse. Hepatitis panel and HIV panel pending. Diarrhea likely viral: Will continue with pro biotics and provide medication as needed. C diff culture negative. Asymptomatic bacteriuria: No need for antibiotic treatment at this time. Urine culture shows mixed luke. UTI prevention will be provided Time Spent Managing Pts Care (In Minutes): 55
[2018-04-26] MEDS ORDERED: FOLIC ACID 1 MG, MULTIVITAMINS INJ 10 ML, THIAMINE HCL 100 MG in NA CHLORIDE 0.9% 1,000 ML IV SCH (09:00)
[2018-04-26] MEDS: ENOXAPARIN 40 MG/0.4 ML SQ SCH ×2 (09:00→09:58)
[2018-04-26] MEDS: FOLIC ACID 1 MG TABLET PO SCH (09:58)
[2018-04-26] MEDS: THIAMINE HCL 100 MG TABLET PO SCH (09:58)
[2018-04-26] MEDS: chlordiazePOXIDE HCl 5 MG CAP PO SCH ×2 (09:58→21:23)
[2018-04-26] MEDS: NICOTINE 21 MG/PAT TD SCH (09:58)
--- NOTE | 2018-04-26 12:43 | RAD REPORT ---
EXAM DESCRIPTION: RAD - Chest Single View - 04/26/2018 7:41 am CLINICAL HISTORY: sob Chest pain. COMPARISON: Chest Single View dated 04/23/2018; Chest Single View dated 07/10/2017; Chest Single View dated 01/28/2017; Chest Single View dated 11/30/2016 FINDINGS: Portable technique limits examination quality. The lungs are grossly clear. The heart is normal in size. No displaced fractures. IMPRESSION: No acute intrathoracic process suspected.
[2018-04-26 13:28] LABS: HIV 1/2 Antibody Diff Not indicated.; HIV AG/AB 4TH GEN Non-reactive (Non-reactive)
--- NOTE | 2018-04-26 16:08 | PN ---
Mr. Briscoe is 67. I was called to see him because he had atrial fibrillation. He is remaining in si nus rhythm and his only medication we gave him for that is metoprolol, that is the medicine he should continue. He is not the patient that I would be comfortable giving outpatient anticoagulation to, b fl while he is here we can anticoagulate him. His main clinical problem is alcohol withdrawal, delir ium tremens and psychiatric disorders. He is still a very high suicide risk. At this point, I do no t recommend any changes in his therapy. HUBER/JAVI Voice ID: [id number] Report ID: [id number]
[2018-04-27 02:51] LABS: HBsAG Nonreactive (Nonreactive); Hepatitis A IgM Antibody Nonreactive
[2018-04-27 04:52] LABS: Absolute Lymphocytes (CBC) 1.2 K/uL (0.7-4.9); Absolute Monocytes 0.8 K/uL (0.1-1.3); Absolute Neutrophil 3.3 K/uL (1.8-8.0); Basophils % 0.7 % (0-1.3); Eosinophils % 1.7 % (0-4.4); Hematocrit 42.7 % (39.6-49.0); Lymphocytes % 21.6 % (15.3-44.8); MPV 10.3 fL (7.6-11.3); Monocytes % 14.5 % (3.3-12.3); RBC Red Blood Cell Count 4.16 M/uL (4.33-5.43)
[2018-04-27 05:08] LABS: BUN Blood Urea Nitrogen 7 mg/dL (7-18); Bicarbonate 25 mmol/L (21-32); Glucose Level 69 mg/dL (74-106); Magnesium 1.9 mg/dL (1.8-2.4); Potassium 3.1 mmol/L (3.5-5.1); Sodium Level 142 mmol/L (136-145)
[2018-04-27 06:11] VITALS: BMI 24.3
[2018-04-27] MEDS: ARFORMOTEROL TARTRATE 15 MCG/2 ML VIAL.NEB NEB SCH ×2 (08:05→19:22)
[2018-04-27] MEDS ORDERED: POTASSIUM CL SA 10 MEQ TAB PO ONE (09:00)
[2018-04-27] MEDS: chlordiazePOXIDE HCl 5 MG CAP PO SCH (09:00)
--- NOTE | 2018-04-27 10:10 | P.PN ---
Subjective Date of Service: 04/27/18 Primary Care Provider: none; Cardiology-Dr. Whitt([facility]) Chief Complaint: Weakness Subjective: Improving (Patient continues to improve. Patient walking with physical therapy) Physical Examination - Vital Signs Temperature: 98.4 F Blood Pressure: 102/71 Pulse: 61 Respirations: 27 Pulse Ox (%): 92 - Physical Exam General: Alert, In no apparent distress, Oriented x3, Cooperative HEENT: Atraumatic Neck: Supple Respiratory: Clear to auscultation bilaterally, Normal air movement Cardiovascular: Normal pulses, Regular rate/rhythm Gastrointestinal: Normal bowel sounds, Soft and benign, Non-distended, No tenderness, No masses, No rebound, No guarding Musculoskeletal: No erythema, No tenderness, No warmth Integumentary: No tenderness/swelling, No erythema, No warmth, No cyanosis Neurological: Normal speech, Normal strength at 5/5 x4 extr, Normal tone, Normal affect - Studies Medications List Reviewed: Yes Assessment & Plan Discharge Plan: Other (Skilled placement) Plan to discharge in: 24 Hours Physician Review Additional Text: Impression: Chronic atrial fibrillation with RVR with history of ablation, chronic anti coagulation therapy and noncompliance with medication/follow up Mild pulmonary edema Diarrhea likely viral Hypertension Alcohol abuse with agitation Tobacco abuse GERD Suspect COPD Mild malnutrition Elevated liver function secondary to fatty liver and alcohol abuse UTI, urine culture positive for Staph epidermidis Plan: Chronic atrial fibrillation with RVR with history of ablation, chronic anti coagulation therapy and noncompliance with medication/follow up: Patient doing well at this time. Patient continues to improve. Beta-rosanne therapy discontinued as heart rate and low blood pressure stable. Will continue monitor closely. Will provide DVT prophylaxis. Cardiology recommends no chronic anti coagulation therapy due to risk of bleeding, falls and noncompliance. Patient agrees to go to skilled facility. Will pursue skilled placement. Will continue to have patient work with physical therapy. Fall precautions in place. Will transfer patient to the floor. Mild pulmonary edema: This has resolved. Will monitor closely. Hypertension: Will monitor closely. No need for blood pressure medication at this time. Will monitor closely. Alcohol abuse with agitation: Patient appears stable today. Will discontinue Librium. Will use Ativan or Haldol as needed. Will continue with folate and thiamine. Will monitor closely. Will continue with physical therapy and await placement. Will try to limit sedation medication. Tobacco abuse: Will provide nicotine patch. Suspect COPD: Will continue with COPD medication. Patient will require medication at discharge. GERD: Will continue with Protonix Mild malnutrition: Will provide vitamin supplementation. Will monitor closely. Encourage oral intake. Elevated liver function secondary to fatty liver and alcohol abuse: Abdominal ultrasound shows no evidence of cirrhosis. Elevated liver function likely related to fatty liver and alcohol abuse. Hepatitis panel and HIV panel unremarkable. Diarrhea likely viral: Will continue with pro biotics and provide medication as needed. C diff culture negative. UTI, urine culture positive for Staph epidermidis: Will treat with doxycycline for 7 days Time Spent Managing Pts Care (In Minutes): 55
[2018-04-27] MEDS: THIAMINE HCL 100 MG TABLET PO SCH (10:16)
[2018-04-27] MEDS: FOLIC ACID 1 MG TABLET PO SCH (10:16)
[2018-04-27] MEDS: NICOTINE 21 MG/PAT TD SCH (10:16)
[2018-04-27] MEDS: ENOXAPARIN 40 MG/0.4 ML SQ SCH (10:17)
--- NOTE | 2018-04-27 16:14 | PN ---
Mr. Briscoe's beta rosanne was stopped because his heart rate was in the low 50s and high 40s. I woul d recommend we go to a much lower dose, perhaps 25 mg once a day will be better tolerated with a slow release form of metoprolol. I recommend we do that rather than stop it, I think his chance of devel oping atrial fibrillation again is quite high. HUBER/JAVI Voice ID: [id number] Report ID: [id number]
[2018-04-27] MEDS: METOPROLOL XL 25 MG TAB PO SCH (21:00)
[2018-04-27] MEDS: DOXYCYCLINE 100 MG CAP PO SCH (21:00)
[2018-04-28] MEDS: ARFORMOTEROL TARTRATE 15 MCG/2 ML VIAL.NEB NEB SCH ×2 (08:03→20:20)
[2018-04-28] MEDS: FOLIC ACID 1 MG TABLET PO SCH (08:22)
[2018-04-28] MEDS: DOXYCYCLINE 100 MG CAP PO SCH ×2 (08:23→21:22)
[2018-04-28] MEDS: NICOTINE 21 MG/PAT TD SCH (08:23)
[2018-04-28] MEDS: THIAMINE HCL 100 MG TABLET PO SCH (08:23)
[2018-04-28] MEDS: ENOXAPARIN 40 MG/0.4 ML SQ SCH (08:23)
--- NOTE | 2018-04-28 10:56 | P.PN ---
Subjective Date of Service: 04/28/18 Primary Care Provider: none; Cardiology-Dr. Whitt([facility]) Chief Complaint: Weakness Subjective: Doing well Physical Examination - Vital Signs Temperature: 97.4 F Blood Pressure: 115/71 Pulse: 67 Respirations: 20 Pulse Ox (%): 99 - Physical Exam General: Alert, In no apparent distress, Oriented x3, Cooperative HEENT: Atraumatic Neck: Supple Respiratory: Clear to auscultation bilaterally, Normal air movement Cardiovascular: Normal pulses, Regular rate/rhythm Gastrointestinal: Normal bowel sounds, Soft and benign, Non-distended, No tenderness, No masses, No rebound, No guarding Musculoskeletal: No erythema, No tenderness, No warmth Integumentary: No tenderness/swelling, No erythema, No warmth, No cyanosis Neurological: Normal speech, Normal strength at 5/5 x4 extr, Normal tone, Normal affect - Studies Medications List Reviewed: Yes Assessment & Plan Discharge Plan: Other (intermediate facility) Plan to discharge in: 24 Hours Physician Review Additional Text: Impression: Chronic atrial fibrillation with RVR with history of ablation, chronic anti coagulation therapy and noncompliance with medication/follow up Mild pulmonary edema Diarrhea likely viral Hypertension Alcohol abuse with agitation Tobacco abuse GERD Suspect COPD Mild malnutrition Elevated liver function secondary to fatty liver and alcohol abuse UTI, urine culture positive for Staph epidermidis, day 2 of treatment Plan: Chronic atrial fibrillation with RVR with history of ablation, chronic anti coagulation therapy and noncompliance with medication/follow up: Patient doing well at this time. Medications adjusted by Cardiology. Cardiology recommends metoprolol XL to be restarted as the patient is high risk to redeveloped atrial fibrillation. Patient seems to be doing well on medication. Patient continues to improve. Will provide DVT prophylaxis. Cardiology recommends no chronic anti coagulation therapy due to risk of bleeding, falls and noncompliance. Patient agrees to go to skilled facility. Social work working on skilled placement approval. Patient to continue work with physical therapy. I will turn the service over to Dr. Herron tomorrow. I will go over the plan of care with her. Mild pulmonary edema: This has resolved. Will monitor closely. Hypertension: Will monitor closely. No need for blood pressure medication at this time. Will monitor closely. Alcohol abuse with agitation: Patient appears stable today. No significant changes noted. Will discontinue Librium. Will use Ativan or Haldol as needed. Will continue with folate and thiamine. Will monitor closely. Will continue with physical therapy and await placement. Will try to limit sedation medication. Tobacco abuse: Will provide nicotine patch. Suspect COPD: Will continue with COPD medication. Patient will require medication at discharge. GERD: Will continue with Protonix Mild malnutrition: Will provide vitamin supplementation. Will monitor closely. Encourage oral intake. Elevated liver function secondary to fatty liver and alcohol abuse: Abdominal ultrasound shows no evidence of cirrhosis. Elevated liver function likely related to fatty liver and alcohol abuse. Hepatitis panel and HIV panel unremarkable. Diarrhea likely viral: Will continue with pro biotics and provide medication as needed. C diff culture negative. UTI, urine culture positive for Staph epidermidis: Will treat with doxycycline for 7 days Time Spent Managing Pts Care (In Minutes): 55
[2018-04-28] MEDS: METOPROLOL XL 25 MG TAB PO SCH (21:22)
[2018-04-29] MEDS: ARFORMOTEROL TARTRATE 15 MCG/2 ML VIAL.NEB NEB SCH ×2 (08:06→19:20)
[2018-04-29] MEDS: ENOXAPARIN 40 MG/0.4 ML SQ SCH (09:24)
[2018-04-29] MEDS: DOXYCYCLINE 100 MG CAP PO SCH ×2 (09:25→20:39)
[2018-04-29] MEDS: THIAMINE HCL 100 MG TABLET PO SCH (09:25)
[2018-04-29] MEDS: NICOTINE 21 MG/PAT TD SCH (09:25)
[2018-04-29] MEDS: FOLIC ACID 1 MG TABLET PO SCH (09:25)
--- NOTE | 2018-04-29 17:38 | P.PN ---
Subjective Date of Service: 04/29/18 Primary Care Provider: none; Cardiology-Dr. Whitt([facility]) Chief Complaint: Weakness Patient seen and examined at bedside with RN. Chart reviewed. Case discussed with case management at bedside. Currently awaiting placement. Patient has no complaints to offer overnight. Review of Systems 10-point ROS is otherwise unremarkable Physical Examination - Vital Signs Temperature: 97.5 F Blood Pressure: 121/86 Pulse: 62 Respirations: 16 Pulse Ox (%): 97 - Physical Exam General: Alert, In no apparent distress HEENT: Atraumatic, PERRLA, EOMI Neck: Supple, JVD not distended Respiratory: Clear to auscultation bilaterally, Normal air movement Cardiovascular: Regular rate/rhythm, Normal S1 S2 Gastrointestinal: Normal bowel sounds, No tenderness Musculoskeletal: No tenderness Integumentary: No rashes Neurological: Normal speech, Normal tone, Normal affect Lymphatics: No axilla or inguinal lymphadenopathy - Studies Medications List Reviewed: Yes Assessment And Plan - Plan Plan: 1. Chronic atrial fibrillation with RVR with history of ablation, and noncompliance with medication/follow up: -now in sinus rhythm with rate control -Cardiology consulted appreciated recommendations at this time -restarted back on metoprolol XL due to high risk of recurrent atrial fibrillation. No anticoagulation due to high risk for bleeding versus noncompliance at this time. 2. Mild pulmonary edema: -Improved Now 3. Hypertension: -stable 4. Alcohol abuse with agitation: -Ativan PRN -Folate and B12. -Stable at this time 5. Tobacco abuse: -Will provide nicotine patch. 6. GERD: -Will continue with Protonix 7. Transaminitis secondary to fatty liver and alcohol abuse: -Abdominal ultrasound shows no evidence of cirrhosis. -Hepatitis panel and HIV panel unremarkable. 8. UTI, urine culture positive for Staph epidermidis: -Will treat with doxycycline for 7 days Disposition: The patient is currently working with physical therapy. [facility] for [facility] and [facility]. Currently is pending insurance approval. Clinically has been accepted at [facility] Discharge Plan: Shelter Plan to discharge in: 48 Hours - Code Status/Comfort Care Code Status Assessed: Yes Critical Care: No
[2018-04-29] MEDS: METOPROLOL XL 25 MG TAB PO SCH (20:40)
[2018-04-30] MEDS: ARFORMOTEROL TARTRATE 15 MCG/2 ML VIAL.NEB NEB SCH (07:40)
[2018-04-30] MEDS: FOLIC ACID 1 MG TABLET PO SCH (09:34)
[2018-04-30] MEDS: ENOXAPARIN 40 MG/0.4 ML SQ SCH (09:34)
[2018-04-30] MEDS: NICOTINE 21 MG/PAT TD SCH (09:34)
[2018-04-30] MEDS: THIAMINE HCL 100 MG TABLET PO SCH (09:35)
[2018-04-30] MEDS: DOXYCYCLINE 100 MG CAP PO SCH (09:35)
[2018-04-30 13:08] VITALS: BP 117/62; TEMP 97.9
[2018-04-30 13:21] VITALS: O2SAT 97
--- NOTE | 2018-04-30 17:04 | P.DS ---
Admission Date: 04/24/18 Discharge Date: 04/30/18 Primary Care Provider: none; Cardiology-Dr. Whitt([facility]) Disposition: ROUTINE DISCHARGE Discharge Condition: GOOD Reason for Admission: Weakness Consultations: Cardiology Procedures: None Brief History of Present Illness: 67-year-old male presented emergency room with weakness. Patient reports weakness over the last several days. Patient was found to have atrial fibrillation with RVR with a rate in the 140s. Patient with history of chronic atrial fibrillation, hypertension, alcohol and tobacco abuse. Patient was given IV metoprolol in the emergency room. Heart rate improved. Patient without any significant chest pain, shortness of breath or edema to the lower extremities. Patient reports compliance with medication but pharmacy was called to verify. Apparently his last pick up operator for amiodarone and Xarelto was back in August of 2017. He was given a 3 month supply but no refills were obtained. Patient stable at this time. I was asked to admit the patient for observation. In the ER CBC pending at this time. Sodium 137, potassium 4.3. GFR of 60. Troponin 0.02. BNP 1900. Total bili room 1.7, AST 145. Chest x-ray unremarkable. BP labile in the ER. He was given one liter bolus. I will given another 250 cc. Due to his complicating issues including possible withdraw from alcohol, I will move him to the ICU. I will inform the Card Assembler concerning this patient. He will need to monitor patient overnight. Hospital Course: Overall during the hospital stay patient remained stable Patient was initially admitted to the hospital for AFib with a VR most likely secondary to alcohol abuse. Patient does have a history of chronic atrial fibrillation and had cardiac ablation done in the past. Patient now developed AFib with RVR due to alcohol abuse and noncompliance with medication. Patient was given IV metoprolol in the ER and heart rate stabilized. Cardiology was consulted who recommended low-dose metoprolol to be given to the patient due to read risk of having atrial fibrillation due to alcohol abuse. Patient did well overall and thus was continued on p.o. low-dose metoprolol. For patient's alcohol abuse patient did have alcohol withdrawal and thus initially was observed in the ICU and was placed on Librium and was eventually weaned off of Librium without any complications. Patient did well over at that time patient was asked to work with physical therapy recommended nursing home facility and patient was then transferred to a nursing home facility for further care with rehab. While here in the hospital patient was also found to have a UTI which was positive for Staph epididymis and sensitive to doxycycline and thus patient was started on p.o. doxycycline to be continued for total of 7 days. Once patient was doing well and was able to ambulate tolerate his diet and heart rate was within normal limits. Patient then was [facility] facility. Patient was asked to follow up with primary care provider in about 1-2 days post discharge. Vital Signs/Physical Exam: Temp Pulse Resp BP Pulse Ox 97.9 F 51 14 117/62 96 04/30/18 12:00 04/30/18 12:00 04/30/18 12:00 04/30/18 12:04/30/18 12:00 General: Alert, In no apparent distress HEENT: Atraumatic, PERRLA, EOMI Neck: Supple, JVD not distended Respiratory: Clear to auscultation bilaterally, Normal air movement Cardiovascular: Regular rate/rhythm, Normal S1 S2 Gastrointestinal: Normal bowel sounds, No tenderness Musculoskeletal: No tenderness Integumentary: No rashes Neurological: Normal speech, Normal tone, Normal affect Lymphatics: No axilla or inguinal lymphadenopathy Laboratory Data at Discharge: WBC 5.4 K/uL (4.3-10.9) 04/27/18 04:24 Hgb 15.2 g/dL (13.6-17.9) 04/27/18 04:24 Hct 42.7 % (39.6-49.0) 04/27/18 04:24 Plt Count 92 K/uL (152-406) L 04/27/18 04:24 PT 13.4 SECONDS (9.5-12.5) H 04/23/18 15:20 INR 1.13 04/23/18 15:20 Sodium 142 mmol/L (136-145) 04/27/18 04:29 Potassium 3.6 mmol/L (3.5-5.1) 04/27/18 14:57 BUN 7 mg/dL (7-18) 04/27/18 04:29 Creatinine 0.73 mg/dL (0.55-1.3) 04/27/18 04:29 Glucose 69 mg/dL (74-106) L 04/27/18 04:29 Magnesium 1.9 mg/dL (1.8-2.4) 04/27/18 04:29 Total Bilirubin 1.3 mg/dL (0.2-1.0) H 04/24/18 04:59 AST 92 U/L (15-37) H 04/24/18 04:59 ALT 33 U/L (12-78) 04/24/18 04:59 Alkaline Phosphatase 80 U/L (45-117) 04/24/18 04:59 Troponin I 0.02 ng/mL (0.0-0.045) 04/24/18 04:59 Triglycerides 211 mg/dL (<150) H 04/24/18 04:59 Cholesterol 132 mg/dL (<200) 04/24/18 04:59 HDL Cholesterol 43 mg/dL (40-60) 04/24/18 04:59 Cholesterol/HDL Ratio 3.07 04/24/18 04:59 Home Medications: Doxycycline Hyclate 100 mg PO BID #14 capsule 04/30/18 Metoprolol Succinate [Toprol Xl*] 25 mg PO BEDTIME #30 tab 04/30/18 New Medications: Doxycycline Hyclate 100 mg PO BID #14 capsule Metoprolol Succinate [Toprol Xl*] 25 mg PO BEDTIME #30 tab Diet: Regular Activity: Ad roxie Followup: Krunal Youngblood MD [ACTIVE - CAN ADMIT] - 1 Week (call to schedule an appointment)
--- NOTE | 2018-05-01 00:51 | PN ---
The patient was admitted to Dr. Herron on 04/24/2018, has been followed for atrial fibrillation. Amio darone was discontinued secondary to liver toxicity, alcohol abuse. The patient is on Xarelto and 25 mg of metoprolol now. Has had an ablation in the past. He is awaiting custodial transfer. Toda y, he is in a sinus rhythm at a rate of 62. Has not had any atrial fibrillation for about 24 hours. From our standpoint, the patient can go home whenever it is okay with Dr. Herron. We will be happy t o see him in the office as an outpatient. MARILIN/JAVI Voice ID: [id number] Report ID: [id number]
== END 2018-04-30 16:53 | DRG 309 ==
LOC: ER 14:51 → ERHOLD 16:44 → 3RD-ICU 20:54 → OBSVTOIN 04-24 07:09 → 4TH 04-25 18:00 → 3RD-ICU 04-25 23:36 → 2ND 04-27 12:40
PROVIDERS: ADMIT Family Medicine; ATTEND Family Medicine
DX: I48.2 Chronic atrial fibrillation (principal); E44.1 Mild protein-calorie malnutrition; R45.851 Suicidal ideations; F10.231 Alcohol dependence with withdrawal delirium; J81.1 Chronic pulmonary edema; N39.0 Urinary tract infection, site not specified; Z79.01 Long term (current) use of anticoagulants; Z91.14 Patient's other noncompliance with medication regimen; E86.0 Dehydration; I10 Essential (primary) hypertension; F17.210 Nicotine dependence, cigarettes, uncomplicated; K21.9 Gastro-esophageal reflux disease without esophagitis; R94.5 Abnormal results of liver function studies; A08.4 Viral intestinal infection, unspecified; K70.0 Alcoholic fatty liver; R82.71 Bacteriuria; B95.7 Other staphylococcus as the cause of diseases classified elsewhere; F32.9 Major depressive disorder, single episode, unspecified
CPT/HCPCS: 36415; 71045; 76705; 80048; 80053; 80061; 80074; 80076; 80307; 80320; 81003; 81015; 82550; 82553; 83615; 83735; 83880; 84132; 84439; 84443; 84484; 85025; 85384; 85610; 87077; 87086; 87088; 87186; 87389; 87493; 90670; 93005; 93306; 96372; 97116; 97163; 97530; 99285; G0009; J1630; J1650; J1940; J3411; J3475; J3486; J7030; J7605

== ENCOUNTER 2018-11-11 14:01 | Emergency (ER) | payer OTHER ==
--- OUTSIDE RECORDS SUMMARY | 2018-11-11 14:25 | XMS REPORT ---
:1950 [facility] Address [address] [place] [address] Dr. Acevedo [address] [place] [id number] Care Team Providers Name Role Phone Unavailable Unavailable Unavailable Problems This patient has no known problems. Allergies, Adverse Reactions, Alerts This patient has no known allergies or adverse reactions. Medications This patient has no known medications.
--- NOTE | 2018-11-11 14:34 | RAD REPORT ---
EXAM DESCRIPTION: Robert Single View11/11/2018 2:27 pm CLINICAL HISTORY: Shortness of breath COMPARISON: March 2018 FINDINGS: The lungs appear clear of acute infiltrate. The heart is normal size IMPRESSION: No acute abnormalities displayed
[2018-11-11 15:26] LABS: Absolute Lymphocytes (CBC) 0.9 K/uL (0.7-4.9); Basophils % 1.1 % (0-1.3); Eosinophils % 0.6 % (0-4.4); Hematocrit 48.2 % (39.6-49.0); Lymphocytes % 21.5 % (15.3-44.8); MPV 10.3 fL (7.6-11.3); Monocytes % 9.4 % (3.3-12.3); RBC Red Blood Cell Count 4.64 M/uL (4.33-5.43)
[2018-11-11 15:47] LABS: Albumin 3.3 g/dL (3.4-5.0); BUN Blood Urea Nitrogen 5 mg/dL (7-18); Bicarbonate 22 mmol/L (21-32); Bilirubin Direct 0.5 mg/dL (0-0.2); Bilirubin Total 1.4 mg/dL (0.2-1.0); Glucose Level 97 mg/dL (74-106); Lipase 167 U/L (73-393); Magnesium 1.8 mg/dL (1.8-2.4); NT PRO-BNP 1445 pg/mL (<125); Potassium 3.6 mmol/L (3.5-5.1); Protein, Total 7.1 g/dL (6.4-8.2); Sodium Level 136 mmol/L (136-145); Troponin (Emerg Dept Use Only) < 0.02 ng/mL (0.0-0.045)
[2018-11-11 15:56] LABS: Blood Morphology Comment NOTED (NOT SEEN); Platelet Estimate DECR; Platelets, Giant NOTED; Target Cells FEW; Urine White Blood Cell Casts OK
[2018-11-11 16:03] LABS: Protime INR 1.09
--- NOTE | 2018-11-11 16:23 | ER ---
Nurse's Notes [facility] Name: Noble Briscoe Age: 67 yrs Sex: Male : 1950 Arrival Date: 11/11/2018 Time: 14:05 Bed 6 Private MD: Diagnosis: Dyspnea, unspecified;Weakness;Alcoholic cirrhosis of liver Presentation: 11/11 14:06 Presenting complaint: EMS states: Pt c/o dizziness, weakness and SOB, 12 lead ph irregular, hx of Afib and HTN, noncompliant w/ home medications, states that he has not taken them for a month. Transition of care: patient was not received from another setting of care. Onset of symptoms was November 11, 2018. Risk Assessment: Do you want to hurt yourself or someone else? Patient reports no desire to harm self or others. Initial Sepsis Screen: Does the patient meet any 2 criteria? No. Patient's initial sepsis screen is negative. Does the patient have a suspected source of infection? No. Patient's initial sepsis screen is negative. Care prior to arrival: IV initiated. 20 GA, in the right antecubital area, Oxygen administered. via nasal cannula. 14:06 Method Of Arrival: EMS: [facility] ph 14:06 Acuity: GILLIAN 2 ph Historical: - Allergies: 14:13 No Known Allergies; ph - Home Meds: 14:13 amiodarone 200 mg Oral tab 1 tab once daily [Active]; carvedilol 3.125 mg Oral tab 1 ph tab daily [Active]; Fish Oil Oral [Active]; folic acid 1 mg Oral tab 1 tab once daily [Active]; hydrochlorothiazide 12.5 mg Oral cap 1 cap once daily [Active]; lisinopril 20 mg Oral tab 1 tab once daily [Active]; multivitamin Oral cap [Active]; Xarelto 20 mg Oral tab 1 tab once daily [Active]; - PMHx: 14:13 Atrial Fib; Cirrhosis; Depression; Hypertension; ph - PSHx: 14:13 Ablation; ph - Immunization history:: Adult Immunizations unknown. - Social history:: Smoking status: Patient uses tobacco products, smokes one pack cigarettes per day. - Ebola Screening: : No symptoms or risks identified at this time. - Family history:: not pertinent. - Hospitalizations: : No recent hospitalization is reported. Screenin:14 Abuse screen: Denies threats or abuse. Denies injuries from another. Nutritional ph screening: No deficits noted. Tuberculosis screening: No symptoms or risk factors identified. Fall Risk None identified. Assessment: 14:16 General: Appears in no apparent distress. comfortable, slender, unkempt, Behavior is ph calm, cooperative, appropriate for age, Reports fatigue for Denies fever, feeling ill. Pain: Denies pain. Neuro: Level of Consciousness is awake, alert, obeys commands, Oriented to person, place, time, situation, Reports dizziness, weakness in kalia knees. Cardiovascular: Reports fatigue, lightheadedness, shortness of breath, Denies chest pain, Capillary refill < 3 seconds in bilateral fingers Patient's skin is warm and dry. Rhythm is irregular. Respiratory: Reports shortness of breath at rest cough that is productive, Airway is patent Respiratory effort is even, unlabored, Respiratory pattern is regular, symmetrical, Breath sounds are coarse in mediastinum. GI: No signs and/or symptoms were reported involving the gastrointestinal system. Derm: Skin is intact, Skin is pink, warm \T\ dry. Musculoskeletal: Circulation, motion, and sensation intact. Range of motion: intact in all extremities, Swelling absent. 15:16 Reassessment: Patient appears in no apparent distress at this time. Patient and/or ph family updated on plan of care and expected duration. Pain level reassessed. Patient is alert, oriented x 3, equal unlabored respirations, skin warm/dry/pink. Pt resting quietly, reports SOB has improved, awaiting lab results. 16:50 Reassessment: Patient appears in no apparent distress at this time. Patient and/or ph family updated on plan of care and expected duration. Pain level reassessed. Patient is alert, oriented x 3, equal unlabored respirations, skin warm/dry/pink. Awaiting completion of IV fluids before. Vital Signs: 14:09 BP 152 / 103; Pulse 99; Resp 18; Temp 97.2; Pulse Ox 98% on R/A; Weight 81.65 kg; ph Height 5 ft. 11 in. (180.34 cm); Pain 0/10; 15:16 BP 144 / 106; Pulse 89; Resp 18; Pulse Ox 98% on R/A; ph 16:27 BP 139 / 103; Pulse 94; Resp 18; Pulse Ox 97% on R/A; ph 14:09 Body Mass Index 25.10 (81.65 kg, 180.34 cm) ph ED Course: 14:05 Patient arrived in ED. rn 14:05 Demian Peraza MD is Attending Physician. rn 14:06 Yulissa Richards, RN is Primary Nurse. ph 14:08 EKG done, by wireless technician. reviewed by Demian Peraza MD. at1 14:09 Triage completed. ph 14:14 Arm band placed on Patient placed in an exam room, on a stretcher, on edge stitcher, ph on pulse oximetry. 14:15 Patient has correct armband on for positive identification. Bed in low position. Call ph light in reach. Side rails up X2. automotive lot attendant on. Pulse ox on. NIBP on. Door closed. Noise minimized. Warm blanket given. 14:23 X-ray completed. Portable x-ray completed in exam room. Patient tolerated procedure jb2 well. 14:26 XRAY CXR (1 view) In Process Unspecified. EDMS 17:11 No provider procedures requiring assistance completed. IV discontinued, intact, ph bleeding controlled, No redness/swelling at site. Pressure dressing applied. Administered Medications: 16:23 Drug: Lasix 40 mg Route: IVP; Site: right antecubital; ph 17:00 Follow up: Response: No adverse reaction ph 16:24 Drug: Magnesium Sulfate 1 grams Route: IVPB; Infused Over: 30 mins; Site: right ph antecubital; 17:00 Follow up: Response: No adverse reaction; IV Status: Completed infusion ph Outcome: 16:22 Discharge ordered by MD. rn 17:12 Patient left the ED. hb 17:12 Discharged to home ambulatory. ph 17:12 Condition: improved 17:12 Discharge instructions given to patient, Instructed on discharge instructions, follow up and referral plans. Demonstrated understanding of instructions, follow-up care. Signatures: Dispatcher [employer] EDMS Chai Olson jb2 Demian Peraza MD MD rn Gonzales, Amanda, general car yard supervisor EKG Tat1 Yulissa Richards, RN RN ph Jodi Smith, LIZ RN hb
--- NOTE | 2018-11-11 16:23 | EDPHYS ---
Physician Documentation [facility] Name: Noble Briscoe Age: 67 yrs Sex: Male : 1950 Arrival Date: 11/11/2018 Time: 14:05 Bed 6 Private MD: ED Physician Demian Peraza HPI: 11/11 14:14 This 67 yrs old Male presents to ER via EMS with complaints of sob, weakness. rn 14:14 The patient has shortness of breath with light activity. Onset: The symptoms/episode rn began/occurred this morning. Duration: The symptoms are intermittent. 14:15 The patient's shortness of breath is aggravated by exertion, light activity. Severity rn of symptoms: At their worst the symptoms were moderate in the emergency department the symptoms have improved. The patient has experienced similar episodes in the past. The patient has not recently seen a physician. Reports this AM noticed increased sob, generalized weakness, just doesn't feel well. No chest pain. No abd pain. Reports + recent diarrhea, non-bloody. No focal neurological complaint. . Historical: - Allergies: 14:13 No Known Allergies; ph - Home Meds: 14:13 amiodarone 200 mg Oral tab 1 tab once daily [Active]; carvedilol 3.125 mg Oral tab 1 ph tab daily [Active]; Fish Oil Oral [Active]; folic acid 1 mg Oral tab 1 tab once daily [Active]; hydrochlorothiazide 12.5 mg Oral cap 1 cap once daily [Active]; lisinopril 20 mg Oral tab 1 tab once daily [Active]; multivitamin Oral cap [Active]; Xarelto 20 mg Oral tab 1 tab once daily [Active]; - PMHx: 14:13 Atrial Fib; Cirrhosis; Depression; Hypertension; ph - PSHx: 14:13 Ablation; ph - Immunization history:: Adult Immunizations unknown. - Social history:: Smoking status: Patient uses tobacco products, smokes one pack cigarettes per day. - Ebola Screening: : No symptoms or risks identified at this time. - Family history:: not pertinent. - Hospitalizations: : No recent hospitalization is reported. ROS: 14:15 Constitutional: Negative for fever, chills, and weight loss, Eyes: Negative for injury, rn pain, redness, and discharge, Neck: Negative for injury, pain, and swelling, Cardiovascular: Negative for chest pain, and edema, Respiratory: Negative for wheezing, and pleuritic chest pain, + sob Abdomen/GI: Negative for abdominal pain, nausea, vomiting, and constipation, MS/Extremity: Negative for injury and deformity, Skin: Negative for injury, rash, and discoloration, Neuro: Negative for headache, numbness, tingling, and seizure. Exam: 14:15 Constitutional: This is a well developed, well nourished patient who is awake, alert, rn and in no acute distress. Head/Face: Normocephalic, atraumatic. Eyes: Pupils equal round and reactive to light, extra-ocular motions intact. Lids and lashes normal. Conjunctiva and sclera are non-icteric and not injected. Cornea within normal limits. Periorbital areas with no swelling, redness, or edema. Cardiovascular: Regular rate and rhythm. No pulse deficits. Respiratory: + mild tachypnea, diminished bilateral bases Abdomen/GI: soft, non-tender MS/ Extremity: Pulses equal, no cyanosis. Neurovascular intact. Full, normal range of motion. Equal circumference. Neuro: Awake and alert, GCS 15, oriented to person, place, time, and situation. Cranial nerves II-XII grossly intact. Motor strength 5/5 in all extremities. Sensory grossly intact. Cerebellar exam normal. Vital Signs: 14:09 BP 152 / 103; Pulse 99; Resp 18; Temp 97.2; Pulse Ox 98% on R/A; Weight 81.65 kg; ph Height 5 ft. 11 in. (180.34 cm); Pain 0/10; 15:16 BP 144 / 106; Pulse 89; Resp 18; Pulse Ox 98% on R/A; ph 16:27 BP 139 / 103; Pulse 94; Resp 18; Pulse Ox 97% on R/A; ph 14:09 Body Mass Index 25.10 (81.65 kg, 180.34 cm) ph MDM: 14:05 Patient medically screened. rn 16:17 Differential diagnosis: Anemia Anxiety Reaction CHF exacerbation, Chronic Obstructive rn Pulmonary Disease Myocardial Infarction pneumonia, Pneumothorax pulmonary edema. Data reviewed: vital signs, nurses notes, lab test result(s), EKG, radiologic studies, plain films, and as a result, I will discharge patient. Counseling: I had a detailed discussion with the patient and/or guardian regarding: the historical points, exam findings, and any diagnostic results supporting the discharge/admit diagnosis, lab results, radiology results, the need for outpatient follow up, to return to the emergency department if symptoms worsen or persist or if there are any questions or concerns that arise at home. Response to treatment: the patient's symptoms have mildly improved after treatment, and as a result, I will discharge patient. Special discussion: I discussed with the patient/guardian in detail that at this point there is no indication for admission to the hospital. It is understood, however, that if the symptoms persist or worsen the patient needs to return immediately for re-evaluation. ED course: Pt with mild pulmonary edema, no acute findings on w/u, states feels better. Patient non-compliant with medication, chooses to do so, as well as daily drinker. Recommend drinking cessation and fluids, as well as restarting medication. Given lasix and magnesium here. Will dc home.. 11/11 14:08 Order name: Blood Culture Adult (2) rn 11/11 14:08 Order name: BMP; Complete Time: 15:48 11/11 14:08 Order name: CBC with Diff; Complete Time: 16:00 11/11 14:08 Order name: Lipase; Complete Time: 15:48 rn 11/11 14:08 Order name: Magnesium; Complete Time: 15:48 11/11 14:08 Order name: NT PRO-BNP; Complete Time: 15:48 11/11 14:08 Order name: PT-INR; Complete Time: 16:17 11/11 14:08 Order name: Ptt, Activated; Complete Time: 16:17 11/11 14:08 Order name: Troponin (emerg Dept Use Only); Complete Time: 15:48 rn 11/11 14:11 Order name: LFT's; Complete Time: 15:49 rn 11/11 14:11 Order name: ETOH Level; Complete Time: 15:48 rn 11/11 15:29 Order name: CBC Smear Scan; Complete Time: 16:00 EDMI 11/11 14:08 Order name: XRAY CXR (1 view); Complete Time: 14:45 11/11 14:08 Order name: EKG; Complete Time: 14:09 rn 11/11 14:08 Order name: Cardiac monitoring; Complete Time: 14:36 11/11 14:08 Order name: EKG - Nurse/Tech; Complete Time: 14:36 rn 11/11 14:08 Order name: IV Saline Lock; Complete Time: 16:25 rn 11/11 14:08 Order name: Labs collected and sent; Complete Time: 16:25 rn 11/11 14:08 Order name: O2 Per Protocol; Complete Time: 14:36 rn 11/11 14:08 Order name: O2 Sat Monitoring; Complete Time: 14:36 rn 11/11 15:25 Order name: Labs - recollect needed; Complete Time: 16:01 bd Administered Medications: 16:23 Drug: Lasix 40 mg Route: IVP; Site: right antecubital; ph 17:00 Follow up: Response: No adverse reaction ph 16:24 Drug: Magnesium Sulfate 1 grams Route: IVPB; Infused Over: 30 mins; Site: right ph antecubital; 17:00 Follow up: Response: No adverse reaction; IV Status: Completed infusion ph Disposition: 11/11/18 16:22 Discharged to Home. Impression: Dyspnea, unspecified, Weakness, Alcoholic cirrhosis of liver. - Condition is Stable. - Discharge Instructions: Shortness of Breath, Weakness, Alcohol Abuse and Nutrition. - Medication Reconciliation Form, Thank You Letter, Antibiotic Education, Prescription Opioid Use form. - Follow up: Private Physician; When: As needed; Reason: Recheck today's complaints, Re-evaluation by your physician. - Problem is new. - Symptoms have improved. Signatures: Dispatcher [employer] [facility] Edwina Cruz Roman, MD MD rn Hall, Patricia, RN RN Jodi Smith RN RN hb Corrections: (The following items were deleted from the chart) 14:14 14:09 Liver (Hepatic) Function ordered. [facility] 17:12 16:22 11/11/2018 16:22 Discharged to Home. Impression: Dyspnea, unspecified; Weakness; hb Alcoholic cirrhosis of liver. Condition is Stable. Forms are Medication Reconciliation Form, Thank You Letter, Antibiotic Education, Prescription Opioid Use. Follow up: Private Physician; When: As needed; Reason: Recheck today's complaints, Re-evaluation by your physician. Problem is new. Symptoms have improved. rn
[2018-11-11] MEDS ORDERED: MAGNESIUM SULFATE 1 gm IVPB 1 GM/100 ML BAG IV ONE (16:32)
[2018-11-11] MEDS ORDERED: FUROSEMIDE 40 MG/4 ML VIAL ONE (16:32)
[2018-11-11 17:48] VITALS: TEMP 97.2
[2018-11-11 17:49] VITALS: BP 139/103; O2SAT 97
--- NOTE | 2018-11-12 07:22 | EKG ---
Test Date: 2018-11-11 Test Time: 14:05:43 Costumer: ANSON/Tere MEASUREMENT RESULTS: Intervals: Rate: 87 OK: 160 QRSD: 120 QT: 386 QTc: 464 [place]: P: 13 OK: 160 QRS: -71 T: 38 INTERPRETIVE STATEMENTS: Sinus rhythm with premature supraventricular complexes Possible Left atrial enlargement Left axis deviation Right bundle branch block Abnormal ECG Compared to ECG 04/23/2018 14:56:29 Atrial premature complex(es) now present Atrial fibrillation no longer present Electronically Signed On 11-12-18 07:20:42 CDT by Se Erazo
== END 2018-11-11 17:12 | disposition home or self-care (01) ==
LOC: ER 14:01
DX: R06.00 Dyspnea, unspecified (principal); R53.1 Weakness; K70.30 Alcoholic cirrhosis of liver without ascites; I10 Essential (primary) hypertension; I48.91 Unspecified atrial fibrillation; F32.9 Major depressive disorder, single episode, unspecified; Z79.01 Long term (current) use of anticoagulants; F17.210 Nicotine dependence, cigarettes, uncomplicated
CPT/HCPCS: 93005; 87040 ×2; 85025; 80048; 36415; 80320; 83735; 87205 ×4; 85610; 80076; 85730; 84484; 83690; 83880; 71045; J1940; J3475

== ENCOUNTER 2018-12-18 16:27 | Inpatient (IN) | payer OTHER ==
--- OUTSIDE RECORDS SUMMARY | 2018-12-18 16:29 | XMS REPORT ---
:1950 [facility] Address [address] [place] [address] Dr. Acevedo [address] [place] [id number] Care Team Providers Name Role Phone Unavailable Unavailable Unavailable Problems This patient has no known problems. Allergies, Adverse Reactions, Alerts This patient has no known allergies or adverse reactions. Medications This patient has no known medications.
[2018-12-18] MEDS ORDERED: NA CHLORIDE 0.9% 1,000 ML ONE ×2 (16:36→19:15)
[2018-12-18] MEDS ORDERED: MAGNESIUM SULFATE 1 gm IVPB 1 GM/100 ML BAG IV ONE (16:36)
[2018-12-18] MEDS ORDERED: THIAMINE 200 MG/2 ML INJ ONE (16:36)
[2018-12-18] MEDS ORDERED: RSI MEDICATION KIT IV ONE (16:38)
[2018-12-18] MEDS ORDERED: NA CHLORIDE 0.9% 2,000 ML ONE (16:47)
[2018-12-18 16:51] LABS: Absolute Lymphocytes (CBC) 1.7 K/uL (0.7-4.9); Basophils % 0.3 % (0-1.3); Hematocrit 58.1 % (39.6-49.0); Lymphocytes % 16.3 % (15.3-44.8); MPV 10.3 fL (7.6-11.3); RBC Red Blood Cell Count 5.58 M/uL (4.33-5.43)
[2018-12-18 17:10] LABS: Protime INR 1.24
[2018-12-18 17:34] LABS: Albumin 3.8 g/dL (3.4-5.0); Bilirubin Direct 0.8 mg/dL (0-0.2); Bilirubin Total 2.3 mg/dL (0.2-1.0); Protein, Total 8.3 g/dL (6.4-8.2); Troponin (Emerg Dept Use Only) 0.2 ng/mL (0.0-0.045)
--- NOTE | 2018-12-18 17:47 | RAD REPORT ---
EXAM DESCRIPTION: RAD - Chest Single View - 12/18/2018 4:54 pm CLINICAL HISTORY: Chest pain, transient alteration of awareness COMPARISON: November 11, 2018 TECHNIQUE: AP portable chest image was obtained 1651 hours . FINDINGS: No focal lung parenchymal process. Resuscitation paddles are in place Heart and vasculatur e are normal. No measurable pleural effusion and no pneumothorax. No acute bony abnormality seen. No acute aortic findings suspected. IMPRESSION: No acute cardiopulmonary process. No significant change from comparison.
[2018-12-18] MEDS ORDERED: CEFEPIME/SWI 2gm 2 GM/20 ML SYR IVP SCH (18:00)
[2018-12-18 18:01] LABS: Magnesium 2.9 mg/dL (1.8-2.4); Potassium 3.1 mmol/L (3.5-5.1)
--- NOTE | 2018-12-18 18:03 | RAD REPORT ---
EXAM DESCRIPTION: CT - Head C Spine Cap Wo Con - 12/18/2018 5:48 pm CLINICAL HISTORY: Fall, found on ground, head, neck, chest and abdomen pain COMPARISON: None. TECHNIQUE: Axial [address] head images were obtained. Axial [address] cervical spine images were obtain ed with sagittal and coronal reconstruction images reviewed. Axial 5 mm images of the chest, abdomen and pelvis were obtained. All CT scans are performed using dose optimization technique as appropriate and may include automated exposure control or mA/KV adjustment according to patient size. FINDINGS: No intracranial hemorrhage, mass or edema. No midline shift or abnormal fluid collection. Mastoid air cells and paranasal sinuses are clear. No skull fracture. Moderate atrophy and chronic i schemic changes are present. Ventricles are in proportion to volume loss. Cervical bodies are normal in height. No fracture changes are present. Minimal C5 subluxation seconda ry to facet degenerative change. Degenerative changes are scattered throughout the cervical spine. No fracture or acute bone finding.C6-7 disc space narrowing present.No prevertebral soft tissue thicken ing or paraspinal mass.Central canal detail is inherently limited on CT imaging.Facet joint degenerat varsha changes are present resulting in bilateral foraminal stenosis at C3-4 and on the left at C5-6. CT chest shows no pneumothorax, pulmonary contusion or pleural fluid collection. No mediastinal hem atoma and the aorta and pulmonary arteries are unremarkable. No chest will mass or abnormal axillary finding. No displaced rib fracture or other significant bony finding. Thoracic spine degenerative ch anges are present. Unilateral right-sided gynecomastia is present. CT abdomen and pelvis show no injury to solid abdominal viscera. Liver fatty infiltration is present. Multi stone cholelithiasis without acute gallbladder process. No biliary tree dilatation. No bowel i njury or significant finding. No free air, free fluid or abnormal stranding. No hernia, mass or bulky lymphadenopathy. No urinary bladder abnormality. Disc and bony degenerative changes are present without acute bone finding in the abdomen and pelvis. IMPRESSION: Atrophy and chronic ischemic changes are present with no acute intracranial finding. Cervical spine degenerative change without acute finding. No acute CT chest findings. No acute CT abdomen and pelvis finding.
--- NOTE | 2018-12-18 18:31 | ER ---
Nurse's Notes [facility] Name: Noble Briscoe Age: 67 yrs Sex: Male : 1950 Arrival Date: 12/18/2018 Time: 16:38 Bed 2 Private MD: Diagnosis: Unspecified kidney failure;Dehydration;Altered mental status, unspecified Presentation: 12/18 16:35 Acuity: GILLIAN 1 sg 16:35 Method Of Arrival: EMS: [facility] sg 16:35 Presenting complaint: EMS states: they were called out by the brother saying that mg2 patient is altered but he had few drinks today. on scene patients ekg shows Afib. thiamine 100 mg and iv 250 mg was administered. BGof 91 mg/dl. Transition of care: patient was not received from another setting of care. Onset of symptoms was December 18, 2018. Risk Assessment: Do you want to hurt yourself or someone else? Patient reports no desire to harm self or others. Care prior to arrival: Medication(s) given: Normal saline infusion, thiamine 100 mg. 16:35 Method Of Arrival: EMS mg2 16:35 Acuity: GILLIAN 1 mg2 16:45 Initial Sepsis Screen: Does the patient meet any 2 criteria? Altered Mental Status. HR sg > 90 bpm. Yes Does the patient have a suspected source of infection? No. Patient's initial sepsis screen is negative. Historical: - Allergies: 17:23 No Known Allergies; ss - PMHx: 16:45 Atrial Fib; Cirrhosis; Depression; Hypertension; sg - PSHx: 16:45 Ablation; sg - Immunization history:: Adult Immunizations unknown. - Social history:: Smoking status: unknown. - Ebola Screening: : Unable to complete screening because. Screenin:45 Abuse screen: Denies threats or abuse. Denies injuries from another. Nutritional sg screening: No deficits noted. Tuberculosis screening: No symptoms or risk factors identified. Never had TB. Fall Risk Mental Status- Overestimates/Forgets Limitations (15 pts.). Total Haque Fall Scale indicates Low Risk Score (25-44 pts). Fall prevention measures have been instituted. Frequent Obs/Assesments occuring. Sepsis Screening: . 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 Provider has been notified and Sepsis Protocol has been initiated. Assessment: 16:45 General: Appears distressed, ill, slender, unkempt, Behavior is cooperative. Pain: sg Unable to use pain scale. Patient is disoriented. Does not appear to understand pain scale. Neuro: Level of Consciousness is awake, confused, Oriented to person, Speech garbled. Pupils are dilated. Cardiovascular: Heart tones S1 S2 present Capillary refill is sluggish in bilateral fingers Pulses are palpable in right radial artery and left radial artery Edema is absent. Respiratory: Airway is patent Respiratory effort is even, Respiratory pattern is regular, tachypnea. GI: Abdomen is flat, non-distended. : No deficits noted. EENT: Nares are clear bilaterally Oral mucosa is dry. Poor dentition noted. abscence of teeth. Derm: Skin is fragile, is thin, Skin is moist, Skin is pink, warm \T\ dry. Skin temperature is hot. Musculoskeletal: Circulation, motion, and sensation intact. Range of motion: intact in all extremities. 17:00 Reassessment: Patient appears in no apparent distress at this time. attempt to insert sg patrick as ordered, pt became aggressive, swinging at nurse and refusing patrick insertion, Roxana CAMARILLO notified. 17:30 Reassessment: Patient appears in no apparent distress at this time. Patient and/or sg family updated on plan of care and expected duration. Pain level reassessed. pt remains confused though Patient states feeling better. Patient states symptoms have improved. 18:49 Reassessment: Myra (sister) phone # is [phone], she will be here in [facility] Friday. 19:00 Reassessment: Patient appears in no apparent distress at this time. No changes from previously documented assessment. 19:10 General: Appears in no apparent distress. ill, slender, unkempt, Behavior is rr5 cooperative, disoriented. 19:10 Pain: Unable to use pain scale. Patient is disoriented. Does not appear to understand rr5 pain scale. Neuro: Level of Consciousness is awake, confused, Oriented to person, Speech garbled. Cardiovascular: Capillary refill < 3 seconds is sluggish in bilateral fingers. Respiratory: Airway is patent Respiratory effort is even, unlabored, Respiratory pattern is regular, symmetrical. GI: No signs and/or symptoms were reported involving the gastrointestinal system. : No deficits noted. EENT: No deficits noted. Derm: Skin is fragile, is thin, has blisters on redness sacral area and buttocks area. has skin tears on sacral area and buttocks Skin temperature is warm. Musculoskeletal: Circulation, motion, and sensation intact. Capillary refill < 3 seconds, is sluggish, fingers. 21:32 Reassessment: updated DonnaLynn with report for transport ICU. ak1 Vital Signs: 16:38 BP 158 / 113; Pulse 171; Resp 18; Pulse Ox 100% on 4 lpm NC; ss 16:45 BP 141 / 118; Pulse 173; Resp 29; Temp 97.3; Pulse Ox 100% on 4 lpm NC; sg 16:48 Pulse 159 MON; ss 16:52 Pulse 77 MON; ss 17:00 BP 160 / 118; Pulse 79; Resp 16; Pulse Ox 100% on 4 lpm NC; ss 17:55 BP 151 / 111; Pulse 80; Resp 24; Pulse Ox 100% on 3 lpm NC; sv 18:30 BP 152 / 100; Pulse 77; Resp 17; Pulse Ox 100% on 4 lpm NC; sg 19:30 BP 155 / 96; Pulse 80; Resp 17; Temp 97.5; Pulse Ox 99% on 4 lpm NC; rr5 20:00 BP 177 / 159; Pulse 85; Resp 20; Pulse Ox 100% on 2 lpm NC; ak1 20:14 BP 135 / 106; Pulse 158; Resp 24; Pulse Ox 100% on 2 lpm NC; ak1 20:20 BP 127 / 114; Pulse 156; Resp 28; Pulse Ox 100% on 2 lpm NC; ak1 20:26 BP 113 / 89; Pulse 143; Resp 26; Pulse Ox 90% on 2 lpm NC; ak1 20:32 BP 154 / 123; Pulse 68; Resp 17; Pulse Ox 100% on 2 lpm NC; ak1 20:41 BP 113 / 89; Pulse 74; Resp 22; Pulse Ox 98% on 2 lpm NC; ak1 21:00 BP 100 / 81; Pulse 69; Resp 25; Pulse Ox 95% on 2 lpm NC; ak1 ED Course: 16:38 Patient arrived in ED. ss 16:40 Patient has correct armband on for positive identification. Bed in low position. Call sg light in reach. Side rails up X2. report developer on. Pulse ox on. NIBP on. Warm blanket given. Head of bed elevated. 16:42 Mele Rudolph MD is Attending Physician. [facility] 16:44 Triage completed. sg 16:45 Maintain EMS IV. Dressing intact. Good blood return noted. Site clean \T\ dry. Gauge \T\ sg site: 20 G Wrist. IV is patent, is intact, with fluids infusing freely, with good blood return. 16:50 Arm band placed on. sg 16:52 X-ray completed. Portable x-ray completed in exam room. Patient tolerated procedure mh1 well. 16:52 XRAY Chest (1 view) In Process Unspecified. EDMS 16:52 Mele Patiño PA is PHCP. cp 17:00 Initial lab(s) drawn, by ED staff, sent to lab. Inserted saline lock: 20 gauge in left sg wrist, using aseptic technique. Blood collected. IV inserted by Charli HILL. 17:24 Mark Anderson RN is Primary Nurse. sg 17:[address] via stretcher. sv 17:48 CT Traumagram (Head C Spine CAP wo con) In Process Unspecified. EDMS 17:[address] Patient moved back from CT. sv 18:17 Luna Sabillon DO is Hospitalizing Provider. cp 19:00 No provider procedures requiring assistance completed. sg 19:00 Patient admitted, IV remains in place. sg 19:30 Straight cath inserted, using sterile technique, 16 Fr. Returned tea colored urine. rr5 Patient tolerated well. 20:22 Assist provider with cardioversion (synchronized) with pads, for treatment of SVT with fc 150 joules Set up for procedure. Performed by Artemio Robles MD Monitored with software asset management analyst, pulse ox, Post procedure rhythm is unchanged. Patient tolerated well. 20:26 Assist provider with cardioversion (synchronized) with pads, for treatment of SVT with fc 200 joules X 1. Set up for procedure. Performed by Artemio Robles MD Monitored with software asset management analyst, pulse ox, Post procedure rhythm is unchanged. Patient tolerated well. Administered Medications: 16:35 Drug: NS 0.9% 1000 ml Route: IV; Rate: 1 bolus; Site: right wrist; sg 17:45 Follow up: Response: No adverse reaction; IV Status: Completed infusion; IV Intake: sg 990ml 16:38 Drug: Lopressor 5 mg Route: IVP; Site: right wrist; sg 18:15 Follow up: Response: No adverse reaction sg 16:40 Drug: Lopressor 2.5 mg Route: IVP; Site: right wrist; sg 16:43 Drug: Lopressor 2.5 mg Route: IVP; Site: right wrist; sg 17:20 Follow up: Response: No adverse reaction sg 16:47 Drug: Thiamine 100 mg Route: IV; Rate: bolus; Site: right forearm; mg2 17:00 Follow up: Response: No adverse reaction; IV Status: Completed infusion sg 16:48 Drug: NS 0.9% 1000 ml Route: IV; Rate: 1 bolus; Site: right forearm; mg2 17:26 Follow up: Response: No adverse reaction; IV Status: Completed infusion; IV Intake: sg 990ml 16:48 Drug: Magnesium Sulfate 1 grams Route: IVPB; Infused Over: 1 hrs; Site: right forearm; mg2 17:15 Follow up: Response: No adverse reaction; IV Status: Completed infusion sg 17:00 Drug: Lopressor 2.5 mg Route: IVP; Site: right wrist; sg 19:35 Follow up: Response: No adverse reaction ak1 17:26 Drug: foLIC Acid 1 mg Route: IVPB; Site: right antecubital; sg 18:00 Follow up: Response: No adverse reaction; IV Status: Completed infusion sg 17:26 Drug: Pepcid 20 mg Route: IVP; Site: right wrist; sg 18:00 Follow up: Response: No adverse reaction sg 18:00 Drug: Cefepime 2 grams Route: IVPB; Rate: 200 ml/hr; Infused Over: 30 mins; Site: right sg wrist; 18:30 Follow up: Response: No adverse reaction; IV Status: Completed infusion sg 19:25 Not Given (Ordered to DC by JENNIFER CAMARILLO): NS 0.9% 1000 ml IV at 1 bolus Per protocol; sg 1000 mL bolus 19:39 Drug: Potassium Chloride 20 mEq Route: IV; Rate: calculated rate; Site: right forearm; rr5 19:58 Follow up: IV Status: Infusion continued upon admission rr5 19:39 Drug: Aspirin Suppository 300 mg Route: UT; rr5 19:58 Follow up: Response: No adverse reaction; administered upon admission rr5 19:39 Drug: NS 0.9% 1000 ml Route: IV; Rate: 125 ml/hr; Site: right forearm; rr5 19:57 Follow up: Response: No adverse reaction; IV Status: Infusion continued upon admission rr5 20:15 Drug: Ativan 2 mg {Note: per Florentin RN.} Route: IVP; Site: left wrist; fc 21:14 Follow up: Response: No adverse reaction rr5 20:19 Drug: Cardizem 5 mg {Note: per Florentin RN.} Route: IVP; Site: left wrist; fc 21:15 Follow up: Response: No adverse reaction rr5 20:21 Drug: Cardizem 5 mg {Note: per Esther RN.} Route: IVP; Site: left wrist; fc 21:14 Follow up: Response: No adverse reaction rr5 20:24 Drug: amiodarone 150 mg {Note: per Esther RN.} Route: IVP; Site: left wrist; fc 21:14 Follow up: Response: No adverse reaction rr5 20:31 Drug: Ativan 2 mg {Note: per Alexys RN.} Route: IVP; Site: left wrist; fc 21:14 Follow up: Response: No adverse reaction rr5 20:38 Drug: Keppra 1000 mg {Note: per Alexys RN.} Route: IV; Rate: 200 ml/hr; Site: left fc wrist; 21:00 Follow up: Response: No adverse reaction; IV Status: Completed infusion; IV Intake: [id number] 20:42 Drug: amiodarone 900 mg, D5W 500 ml {Note: per Alexys RN.} Route: IVPB; Rate: 1 fc mg/min; Site: right hand; 21:13 Follow up: Response: No adverse reaction; IV Status: Infusion continued upon admission; rr5 IV Intake: 20ml Point of Care Testing: Blood Glucose: 16:45 Blood Glucose: 111 mg/dL; sg Ranges: Intake: 14:30 IV: 200ml; Total: 200ml. mg2 14:40 IV: 500ml; Total: 700ml. mg2 17:26 IV: 990ml; Total: 1690ml. sg 17:45 IV: 990ml; Total: 2680ml. sg 21:00 IV: 50ml; Total: 2730ml. rr5 21:13 IV: 20ml; Total: 2750ml. rr5 Output: 19:30 Urine: 350ml (Straight Cath); Total: 350ml. rr5 Outcome: 18:18 Decision to Hospitalize by Provider. cp 19:36 Admitted to ICU accompanied by nurse, accompanied by tech, via stretcher, room ICU 1, ak1 on monitor, with chart, Report called to Sherron 19:36 critical 19:36 Instructed on the need for admit. 21:33 Patient left the ED. ak1 Signatures: Dispatcher [employer] EDErika Harrington, RN RN Mark Mendez RN RN Mele Herrera MD MD cha Harvey, [facility] Fern Flores, RN RN Cherelle Lemus RN RN Esther Thorne RN RN ak1 Mele Patiño, PA PA cp Serge Cannon, RN RN mg2 Alexys Viveros, RN RN rr5 Corrections: (The following items were deleted from the chart) 19:25 16:40 NS 0.9% 1000 ml IV at 1 bolus in left wrist sg sg
--- NOTE | 2018-12-18 18:33 | EDPHYS ---
Physician Documentation [facility] Name: Noble Briscoe Age: 67 yrs Sex: Male : 1950 Arrival Date: 12/18/2018 Time: 16:38 Bed 2 Private MD: ED Physician Mele Rudolph HPI: 12/18 17:21 This 67 yrs old Male presents to ER via EMS with complaints of AMS. cp 17:21 The patient presents with confusion. Onset: The symptoms/episode began/occurred at an cp unknown time. Possible causes: alcohol. Associated signs and symptoms: Pertinent negatives: abdominal pain, chest pain, fever. Current symptoms: In the emergency department the patient's symptoms are unchanged from the initial presentation, despite EMS interventions. 17:21 Unable to obtain HPI due to altered mental status. cp Historical: - Allergies: 17:23 No Known Allergies; ss - PMHx: 16:45 Atrial Fib; Cirrhosis; Depression; Hypertension; sg - PSHx: 16:45 Ablation; sg - Immunization history:: Adult Immunizations unknown. - Social history:: Smoking status: unknown. - Ebola Screening: : Unable to complete screening because. ROS: 17:22 Constitutional: Negative for fever. cp 17:22 Cardiovascular: Negative for chest pain. 17:22 Abdomen/GI: Negative for abdominal pain. 17:22 Unable to obtain ROS due to altered mental status. Exam: 17:05 ECG was reviewed by the Attending Physician. cp 17:30 Constitutional: The patient appears alert, awake, non-diaphoretic, non-toxic, well cp developed, well nourished, unkempt. 17:30 Head/Face: Normocephalic, atraumatic. cp 17:30 Eyes: Periorbital structures: appear normal, Pupils: equal, round, and reactive to light and accomodation, Conjunctiva: normal, no exudate, no injection, Sclera: no appreciated abnormality, Lids and lashes: appear normal, bilaterally. 17:30 ENT: External ear(s): are unremarkable, Ear canal(s): are normal, clear, TM's: dullness, bilaterally, Nose: is normal, Mouth: Lips: moist, Oral mucosa: moist, Posterior pharynx: Airway: no evidence of obstruction, patent. 17:30 Neck: C-spine: vertebral tenderness, is not appreciated, crepitus, is not appreciated. 17:30 Chest/axilla: Inspection: normal, Palpation: is normal, no crepitus, no tenderness. 17:30 Cardiovascular: Rate: normal, Rhythm: regular, Edema: is not appreciated, JVD: is not appreciated. 17:30 Respiratory: the patient does not display signs of respiratory distress, Respirations: shallow respirations, that is mild, Breath sounds: decreased breath sounds, that are mild, are located in both bases, stridor, is not appreciated, wheezing: is not appreciated. 17:30 Abdomen/GI: Inspection: abdomen appears normal, Palpation: abdomen is soft and non-tender, in all quadrants. 17:30 Back: pain, is absent. 17:30 Musculoskeletal/extremity: Exam is negative for deformity, injury. 17:30 Skin: cellulitis, is not appreciated, no rash present. 17:30 Neuro: Orientation: to person, Mentation: confused, Motor: moves all fours. Vital Signs: 16:38 BP 158 / 113; Pulse 171; Resp 18; Pulse Ox 100% on 4 lpm NC; ss 16:45 BP 141 / 118; Pulse 173; Resp 29; Temp 97.3; Pulse Ox 100% on 4 lpm NC; sg 16:48 Pulse 159 MON; ss 16:52 Pulse 77 MON; ss 17:00 BP 160 / 118; Pulse 79; Resp 16; Pulse Ox 100% on 4 lpm NC; ss 17:55 BP 151 / 111; Pulse 80; Resp 24; Pulse Ox 100% on 3 lpm NC; sv 18:30 BP 152 / 100; Pulse 77; Resp 17; Pulse Ox 100% on 4 lpm NC; sg 19:30 BP 155 / 96; Pulse 80; Resp 17; Temp 97.5; Pulse Ox 99% on 4 lpm NC; rr5 20:00 BP 177 / 159; Pulse 85; Resp 20; Pulse Ox 100% on 2 lpm NC; ak1 20:14 BP 135 / 106; Pulse 158; Resp 24; Pulse Ox 100% on 2 lpm NC; ak1 20:20 BP 127 / 114; Pulse 156; Resp 28; Pulse Ox 100% on 2 lpm NC; ak1 20:26 BP 113 / 89; Pulse 143; Resp 26; Pulse Ox 90% on 2 lpm NC; ak1 20:32 BP 154 / 123; Pulse 68; Resp 17; Pulse Ox 100% on 2 lpm NC; ak1 20:41 BP 113 / 89; Pulse 74; Resp 22; Pulse Ox 98% on 2 lpm NC; ak1 21:00 BP 100 / 81; Pulse 69; Resp 25; Pulse Ox 95% on 2 lpm NC; ak1 Procedures: 20:25 Cardioversion: (synchronized) for treatment of V tach, with 150 joules X 1. Post cp procedure rhythm is unchanged, the patient tolerated the procedure well. 20:30 Cardioversion: (synchronized) for treatment of V tach, with 200 joules X 1. Post cp procedure rhythm is sinus rhythm, the patient tolerated the procedure well. MDM: 16:42 Patient medically screened. nicholas 17:00 Differential Diagnosis: CVA, intracranial bleed, pneumonia, seizure, sepsis, UTI, cp volume depletion, cardiac arrythmia. 19:00 Data reviewed: vital signs, nurses notes, lab test result(s), EKG, radiologic studies, cp CT scan, plain films, I have discussed the patient's presentation/case with the attending Emergency Department Physician;. 19:00 Test interpretation: by ED physician or midlevel provider: ECG, plain radiologic cp studies. 12/18 16:38 Order name: Basic Metabolic Panel; Complete Time: 18:04 12/18 18:08 Interpretation: Normal except: CO2 16; GLUC 114; BUN 42; CRE 2.13; GFR 31; NA 164; K cp 3.1; CL 129. 12/18 16:38 Order name: CBC with Diff 12/18 17:38 Interpretation: Normal except: RBC 5.58; HGB 18.6; HCT 58.1; MCV 104.2; PLT 85. 12/18 16:38 Order name: LFT's; Complete Time: 18:04 12/18 16:38 Order name: Magnesium; Complete Time: 18:04 12/18 16:38 Order name: NT PRO-BNP; Complete Time: 18:04 12/18 17:39 Interpretation: Abnormal: NT PRO-BNP 3500. 12/18 16:38 Order name: PT-INR; Complete Time: 17:38 12/18 17:38 Interpretation: Abnormal: PT 14.5. 12/18 16:38 Order name: Troponin (emerg Dept Use Only); Complete Time: 18:04 12/18 16:38 Order name: ETOH Level; Complete Time: 17:38 12/18 16:45 Order name: Acetaminophen; Complete [facility]: [facility] 12/18 16:45 Order name: Ptt, Activated; Complete Time: 17:38 [facility] 12/18 16:45 Order name: Salicylate; Complete Time: 18:00 [facility] 12/18 16:45 Order name: Urine Drug Screen [facility] 12/18 16:45 Order name: Procalcitonin; Complete Time: 19:08 [facility] 12/18 16:45 Order name: Lactate; Complete Time: 17:38 [facility] 12/18 17:38 Interpretation: Abnormal: LAC 2.9. 12/18 16:38 Order name: XRAY Chest (1 view); Complete Time: 18:00 12/18 16:45 Order name: Blood Culture Adult (2) [facility] 12/18 16:57 Order name: CT Traumagram (Head C Spine CAP wo con); Complete Time: 18:09 12/18 16:57 Order name: AMMONIA; Complete Time: 19:08 12/18 18:20 Order name: CPK; Complete Time: 19:08 12/18 19:09 Interpretation: Abnormal: CPK 314. 12/18 18:21 Order name: LAB Add On 12/18 19:30 Order name: CBC Smear Scan [facility] 12/18 19:41 Order name: Urine Dipstick--Ancillary (enter results) ar 12/18 19:56 Order name: Urine Dipstick-Ancillary [facility] 12/18 16:38 Order name: EKG; Complete Time: 16:41 12/18 16:38 Order name: Cardiac monitoring; Complete Time: 16:44 12/18 16:38 Order name: EKG - Nurse/Tech; Complete Time: 16:44 12/18 16:38 Order name: IV Saline Lock; Complete Time: 16:44 12/18 16:38 Order name: Labs collected and sent; Complete Time: 16:44 12/18 16:38 Order name: O2 Per Protocol; Complete Time: 16:44 12/18 16:38 Order name: O2 Sat Monitoring; Complete Time: 16:44 12/18 16:45 Order name: Urine Dipstick-Ancillary (obtain specimen); Complete Time: 19:36 nicholas 12/18 20:45 Order name: EKG; Complete Time: 20:46 ar12/18 20:45 Order name: EKG - Nurse/Tech; Complete Time: 20:47 ar5 12/18 20:46 Order name: EKG; Complete Time: 20:47 ar12/18 20:46 Order name: EKG - Nurse/Tech; Complete Time: 20:47 ar12/18 20:46 Order name: EKG; Complete Time: 20:47 ar5 12/18 20:46 Order name: EKG - Nurse/Tech; Complete Time: 20:47 ar12/18 20:47 Order name: EKG; Complete Time: 20:47 ar12/18 20:47 Order name: EKG; Complete Time: 20:47 ar12/18 20:47 Order name: EKG - Nurse/Tech; Complete Time: 20:47 ar12/18 20:47 Order name: EKG - Nurse/Tech; Complete Time: 20:47 5 EC:05 Rate is 80 beats/min. Rhythm is regular. NE interval is normal. QRS interval is cp prolonged. QT interval is normal. T waves are Inverted in leads aVR, V2. Interpreted by me. Reviewed by me. Administered Medications: 16:35 Drug: NS 0.9% 1000 ml Route: IV; Rate: 1 bolus; Site: right wrist; sg 17:45 Follow up: Response: No adverse reaction; IV Status: Completed infusion; IV Intake: sg 990ml 16:38 Drug: Lopressor 5 mg Route: IVP; Site: right wrist; sg 18:15 Follow up: Response: No adverse reaction sg 16:40 Drug: Lopressor 2.5 mg Route: IVP; Site: right wrist; sg 16:43 Drug: Lopressor 2.5 mg Route: IVP; Site: right wrist; sg 17:20 Follow up: Response: No adverse reaction sg 16:47 Drug: Thiamine 100 mg Route: IV; Rate: bolus; Site: right forearm; mg2 17:00 Follow up: Response: No adverse reaction; IV Status: Completed infusion sg 16:48 Drug: NS 0.9% 1000 ml Route: IV; Rate: 1 bolus; Site: right forearm; mg2 17:26 Follow up: Response: No adverse reaction; IV Status: Completed infusion; IV Intake: sg 990ml 16:48 Drug: Magnesium Sulfate 1 grams Route: IVPB; Infused Over: 1 hrs; Site: right forearm; mg2 17:15 Follow up: Response: No adverse reaction; IV Status: Completed infusion sg 17:00 Drug: Lopressor 2.5 mg Route: IVP; Site: right wrist; sg 19:35 Follow up: Response: No adverse reaction ak1 17:26 Drug: foLIC Acid 1 mg Route: IVPB; Site: right antecubital; sg 18:00 Follow up: Response: No adverse reaction; IV Status: Completed infusion sg 17:26 Drug: Pepcid 20 mg Route: IVP; Site: right wrist; sg 18:00 Follow up: Response: No adverse reaction sg 18:00 Drug: Cefepime 2 grams Route: IVPB; Rate: 200 ml/hr; Infused Over: 30 mins; Site: right sg wrist; 18:30 Follow up: Response: No adverse reaction; IV Status: Completed infusion sg 19:25 Not Given (Ordered to DC by JENNIFER CAMARILLO): NS 0.9% 1000 ml IV at 1 bolus Per protocol; sg 1000 mL bolus 19:39 Drug: Potassium Chloride 20 mEq Route: IV; Rate: calculated rate; Site: right forearm; rr5 19:58 Follow up: IV Status: Infusion continued upon admission rr5 19:39 Drug: Aspirin Suppository 300 mg Route: NE; rr5 19:58 Follow up: Response: No adverse reaction; administered upon admission rr5 19:39 Drug: NS 0.9% 1000 ml Route: IV; Rate: 125 ml/hr; Site: right forearm; rr5 19:57 Follow up: Response: No adverse reaction; IV Status: Infusion continued upon admission rr5 20:15 Drug: Ativan 2 mg {Note: per Florentin RN.} Route: IVP; Site: left wrist; fc 21:14 Follow up: Response: No adverse reaction rr5 20:19 Drug: Cardizem 5 mg {Note: per Florentin RN.} Route: IVP; Site: left wrist; fc 21:15 Follow up: Response: No adverse reaction rr5 20:21 Drug: Cardizem 5 mg {Note: per Esther RN.} Route: IVP; Site: left wrist; fc 21:14 Follow up: Response: No adverse reaction rr5 20:24 Drug: amiodarone 150 mg {Note: per Esther RN.} Route: IVP; Site: left wrist; fc 21:14 Follow up: Response: No adverse reaction rr5 20:31 Drug: Ativan 2 mg {Note: per Alexys RN.} Route: IVP; Site: left wrist; fc 21:14 Follow up: Response: No adverse reaction rr5 20:38 Drug: Keppra 1000 mg {Note: per Alexys RN.} Route: IV; Rate: 200 ml/hr; Site: left fc wrist; 21:00 Follow up: Response: No adverse reaction; IV Status: Completed infusion; IV Intake: [id number] 20:42 Drug: amiodarone 900 mg, D5W 500 ml {Note: per Alexys RN.} Route: IVPB; Rate: 1 fc mg/min; Site: right hand; 21:13 Follow up: Response: No adverse reaction; IV Status: Infusion continued upon admission; rr5 IV Intake: 20ml Point of Care Testing: Blood Glucose: 16:45 Blood Glucose: 111 mg/dL; sg Ranges: Critical Glucose Levels:Adult <50 mg/dl or >400 mg/dl <40 mg/dl or >180 mg/dl Disposition: 21:45 Critical Care:. cp 21:45 Chart complete. 12/19 09:08 Co-signature as Attending Physician, Mele Rudolph MD I agree with the assessment and nicholas plan of care. Disposition: 12/18/18 18:18 Hospitalization ordered by Luan Sabillon for Inpatient Admission. Preliminary diagnosis are Unspecified kidney failure, Dehydration, Altered mental status, unspecified. - Bed requested for Intensive Care Unit. - Status is Inpatient Admission. ak1 - Condition is Stable. - Problem is new. - Symptoms have improved. UTI on Admission? No Critical care time excluding procedures: 12/18 21:45 Critical care time: Bedside Care: 20 minutes, Consultation: 30 minutes, Family cp Intervention: 10 minutes. Total time: 60 minutes Signatures: Dispatcher [employer] Mark Cosme RN RN sg Anderson, Corey, MD MD cha Chretien, Felicia, RN RN fc Smirch, Shelby, RN RN Esther Robertson RN RN ak1 Mele Patiño PA PA cp Garcia, Cindy, RN RN cg Serge Cannon, LIZ RN mg2 Alexys Viveros RN RN germán5 Valeri White5 Corrections: (The following items were deleted from the chart) 17:19 16:47 Head Brain Wo Cont+CT.RAD.BRZ ordered. EDMS EDMS 18:08 17:39 Normal except: CO2 16; GLUC 114; BUN 42; CRE 2.13; GFR 31. cp cp 19:14 18:18 Hospitalization Ordered by Luan Sabillon DO for Inpatient Admission. Preliminary cg diagnosis is Unspecified kidney failure; Dehydration; Altered mental status, unspecified. Bed requested for Intensive Care Unit. Status is Inpatient Admission. Condition is Stable. Problem is new. Symptoms have improved. UTI on Admission? No. cp 19:35 16:45 [facility] ak1 21:33 19:14 12/18/2018 18:18 Hospitalization Ordered by Luan Sabillon DO for Inpatient ak1 Admission. Preliminary diagnosis is Unspecified kidney failure; Dehydration; Altered mental status, unspecified. Bed requested for Intensive Care Unit. Status is Inpatient Admission. Condition is Stable. Problem is new. Symptoms have improved. UTI on Admission? No. cg
[2018-12-18] MEDS ORDERED: ASPIRIN 600 MG/SUPP PR ONE (19:14)
[2018-12-18] MEDS ORDERED: KCL 20 MEQ/100 mL IVPB 20 MEQ/100 ML BAG IV ONE (19:15)
[2018-12-18 19:27] LABS: Urine White Blood Cell Casts OK
[2018-12-18 19:28] LABS: Blood Morphology Comment NOT SEEN (NOT SEEN); Platelet Estimate DECR; Platelets, Giant PRESENT
[2018-12-18] MEDS ORDERED: ACETAMINOPHEN 650MG/RECT SUPP RECT PRN (19:31)
[2018-12-18] MEDS ORDERED: ONDANSETRON 4 MG/2 ML VIAL IV PRN (19:31)
[2018-12-18] MEDS ORDERED: ALBUTEROL 2.5 MG/3 ML NEB SOL NEB PRN (19:31)
[2018-12-18] MEDS ORDERED: ACETAMINOPHEN 500 MG TAB PO PRN (19:31)
[2018-12-18] MEDS ORDERED: SODIUM CHLORIDE 0.9% 10ML INJ IV PRN (19:31)
--- NOTE | 2018-12-18 19:51 | P.HP ---
Certification for Inpatient Patient admitted to: Inpatient With expected LOS: >2 Midnights Practitioner: I am a practitioner with admitting privileges, knowledge of patient current condition, hospital course, and medical plan of care. Services: Services provided to patient in accordance with Admission requirements found in Title 42 Section 412.3 of the Code of Federal Regulations Patient History Date of Service: 12/19/18 Reason for admission: Altered mental status History of Present Illness: 67-year-old known alcoholic was brought to the emergency department because patient was found on the floor in his home confused. Per report, family was checking on him and found him on the floor, confused, unable to get up, disheveled. Family called out to EMS who brought him to the emergency department. He was in SVT with a heart rate of 192 on arrival. His heart rate responded to IV metoprolol and decreased to the 80s. Patient was very confused and could not provide any history. Blood work in the ED revealed severe hypernatremia and acute renal failure. No witnessed seizures, no witnessed fall. CT head, cervical spine, thorax and abdomen did not show any traumatic injury. No acute disease. His alcohol level was less than 3. It is unknown how long patient had been on the floor. He has no leukocytosis, UA is pending. Patient is admitted for further management of metabolic encephalopathy. Allergies No Known Allergies Allergy (Verified 01/28/17 20:51) Home Medications: Doxycycline Hyclate 100 mg PO BID #14 capsule 04/30/18 Metoprolol Succinate [Toprol Xl*] 25 mg PO BEDTIME #30 tab 04/30/18 - Past Medical/Surgical History Diabetic: No -: Depression -: Chronic atrial fibrillation -: HTN -: Alcohol abuse -: Tobacco abuse -: Noncompliance with medication and follow up -: suicide attempt -: anxiety -: insomnia -: arthritis -: Cardiac ablation Psychosocial/ Personal History: Patient lives by himself. He has no family in the area. - Family History Mother -: Heart disease Notes: Father -: Heart disease Notes: - Social History Alcohol use: Yes CD- Drugs: No Caffeine use: No Review of Systems is unable to be obtained Physical Examination - Physical Exam General: In no apparent distress, Disheveled, Confused HEENT: Atraumatic, Normocephalic, PERRLA, EOMI Neck: Supple, 2+ carotid pulse no bruit, JVD not distended, No Thyromegaly Respiratory: Clear to auscultation bilaterally, Normal air movement Cardiovascular: No edema, Regular rate/rhythm, Normal S1 S2, No murmurs Capillary refill: <2 Seconds Gastrointestinal: Normal bowel sounds, Soft and benign, Non-distended Musculoskeletal: No erythema, No tenderness Integumentary: No rashes, No erythema, Other (Reduced skin turgor.) - Studies Laboratory Data (last 24 hrs) 12/18/18 16:34: PT 14.5 H, INR 1.24 12/18/18 16:34: WBC 10.4, Hgb 18.6 H, Hct 58.1 H, Plt Count 85 L 12/18/18 16:34: Sodium 164 H*, Potassium 3.1 L, BUN 42 H, Creatinine 2.13 H, Glucose 114 H, Magnesium 2.9 H D, Total Bilirubin 2.3 H, AST 89 H, ALT 48, Alkaline Phosphatase 67 12/18/18 16:15: APTT 31.8 Imagings Data: CT head, cervical spine, thorax, abdomen and pelvis: FINDINGS: No intracranial hemorrhage, mass or edema. No midline shift or abnormal fluid collection. Mastoid air cells and paranasal sinuses are clear. No skull fracture. Moderate atrophy and chronic ischemic changes are present. Ventricles are in proportion to volume loss. Cervical bodies are normal in height. No fracture changes are present. Minimal C5 subluxation secondary to facet degenerative change. Degenerative changes are scattered throughout the cervical spine. No fracture or acute bone finding.C6-7 disc space narrowing present.No prevertebral soft tissue thickening or paraspinal mass.Central canal detail is inherently limited on CT imaging.Facet joint degenerative changes are present resulting in bilateral foraminal stenosis at C3-4 and on the left at C5-6. CT chest shows no pneumothorax, pulmonary contusion or pleural fluid collection. No mediastinal hematoma and the aorta and pulmonary arteries are unremarkable. No chest will mass or abnormal axillary finding. No displaced rib fracture or other significant bony finding. Thoracic spine degenerative changes are present. Unilateral right-sided gynecomastia is present. CT abdomen and pelvis show no injury to solid abdominal viscera. Liver fatty infiltration is present. Multi stone cholelithiasis without acute gallbladder process. No biliary tree dilatation. No bowel injury or significant finding. No free air, free fluid or abnormal stranding. No hernia, mass or bulky lymphadenopathy. No urinary bladder abnormality. Disc and bony degenerative changes are present without acute bone finding in the abdomen and pelvis. IMPRESSION: Atrophy and chronic ischemic changes are present with no acute intracranial finding. Cervical spine degenerative change without acute finding. Assessment and Plan - Problems (Diagnosis) (1) Metabolic encephalopathy Current Visit: Yes Status: Acute (2) Hypernatremia Current Visit: Yes Status: Acute (3) Dehydration Onset Date: 04/24/18 Current Visit: No Status: Acute (4) Alcohol dependence Onset Date: 01/29/17 Current Visit: No Status: Chronic Qualifiers: Substance use status: in withdrawal Complication of substance-induced condition: uncomplicated Qualified Code(s): F10.230 - Alcohol dependence with withdrawal, uncomplicated (5) Atrial fibrillation with rapid ventricular response Onset Date: 01/29/17 Current Visit: No Status: Acute (6) Acute renal failure Current Visit: Yes Status: Acute (7) Thrombocytopenia Current Visit: Yes Status: Acute - Plan Admit to ICU Hydrate with IV half-normal saline. IV fluid to correct the hypernatremia and to treat acute renal failure. Monitor BMP q.4 hr. Target: Change serum sodium level <10-12 meq over 24 hrs. CIWA for impending alcohol withdrawal. IV thiamine and folic acid Nephrology consult UA is pending No indication for antibiotics at this time. Continue oral metoprolol to control heart rate. Anticoagulation has been has been avoided in the past secondary to his alcoholism and his risk of falls. Amiodarone has been avoided due to alcoholic liver disease. Monitor CBC. Avoid anticoagulants given thrombocytopenia. - Advance Directives Does patient have a Living Will: No Does patient have a Durable POA for Healthcare: No
[2018-12-18 19:53] LABS: Barbiturates NEGATIVE (NEGATIVE); Benzodiazepines NEGATIVE (NEGATIVE); Cocaine NEGATIVE (NEGATIVE); METHAMPHETAM NEGATIVE (NEGATIVE); Methadone NEGATIVE (NEGATIVE); Opiates NEGATIVE (NEGATIVE); Phencyclidine NEGATIVE (NEGATIVE); THC Cannibis NEGATIVE (NEGATIVE)
[2018-12-18 19:55] LABS: Urine Blood 2+ (NEG); Urine Glucose NEGATIVE (NEG); Urine Protein 3+ (NEG); Urine Specific Gravity >1.030 (1.005-1.030); Urine pH 5.5 (5.0-7.0)
[2018-12-18] MEDS: ARFORMOTEROL TARTRATE 15 MCG/2 ML VIAL.NEB NEB SCH (20:00)
[2018-12-18] MEDS ORDERED: POTASSIUM CHLORIDE-0.45% NACL 20 MEQ/1,000 ML BAG IV SCH (20:00)
[2018-12-18] MEDS ORDERED: LORazepam 2 MG/ML VIAL ONE ×2 (20:11→20:30)
[2018-12-18] MEDS ORDERED: dilTIAZem HCl 25 MG/5 ML VIAL IV ONE (20:15)
[2018-12-18] MEDS ORDERED: AMIODARONE HCL 150 MG/3 ML INJ IV ONE ×2 (20:28→20:32)
[2018-12-18] MEDS ORDERED: NA CHLORIDE 0.9% 500 ML ONE (20:29)
[2018-12-18] MEDS ORDERED: NA CHLORIDE 0.9% 50 ML IV ONE (20:34)
[2018-12-18] MEDS ORDERED: LEVETIRACETAM 500 MG/5 ML VIAL IV ONE ×2 (20:34→20:36)
[2018-12-18] MEDS ORDERED: AMIODARONE HCL 900 MG in Dextrose 5%-Water 482 ML IV SCH (22:00)
--- NOTE | 2018-12-18 22:00 | P.PN ---
Date of Service: 12/18/18 I was called by the ED staff to evaluate patient because he developed V-tach needing electric cardioversion. Patient was given a dose of 150 mg amiodarone after the electrical cardioversion. No loss of pulse. Blood pressure was stable after the electric shock. He was then given IV potassium to correct hypokalemia. EKG reviewed and noted SVT. Patient noted to have alternating rate controlled AFib and SVT. Past medical records reviewed. Patient had been on amiodarone for AFib in the past. He is started on amiodarone drip. Patient also experienced multiple seizure episodes. The seizures did not respond to 2 mg of Ativan x2 doses. He was given a loading dose 1000 mg Keppra which is now controlling the seizures. Patient is DNR. Was considering intubation for both airway protection and also for Versed drip if the seizures persist. Discussed case with Dr. Sabillon who reviewed code status with the family- comprising brother and 2 sisters. DNR was confirmed. They also requested DNI. Will start Keppra 500 mg IV q.12 hrs Continue half-normal saline and monitor BMP closely. Ativan is available p.r.n. for intermittent seizures and also for alcohol withdrawal symptoms. UA is positive for nitrites. Will obtain Urine culture and start IV rocephin. Contact for family: Jitendra-brother: [phone] Lyn-sister: [phone] Svetlana-sister: [phone]
[2018-12-18 23:26] LABS: CKMB Creatine Kinase MB 1.8 ng/mL (0.3-3.6); Potassium 3.6 mmol/L (3.5-5.1); Troponin I 0.28 ng/mL (0.0-0.045)
[2018-12-18] MEDS ORDERED: D5W 1,000 ML IV ONE (23:44)
[2018-12-18] MEDS: D5W 1,000 ML IV SCH (23:48)
[2018-12-19 05:36] LABS: Absolute Lymphocytes (CBC) 1.6 K/uL (0.7-4.9); Basophils % 0.6 % (0-1.3); Hematocrit 45.8 % (39.6-49.0); MPV 10.5 fL (7.6-11.3); RBC Red Blood Cell Count 4.44 M/uL (4.33-5.43)
[2018-12-19 06:00] LABS: Albumin 2.9 g/dL (3.4-5.0); Bilirubin Total 1.9 mg/dL (0.2-1.0); Magnesium 2.6 mg/dL (1.8-2.4); Phosphorus 4.7 mg/dL (2.5-4.9); Protein, Total 6.5 g/dL (6.4-8.2); Thyroid Stimulating Hormone 0.459 uIU/mL (0.360-3.740)
[2018-12-19 07:43] LABS: Potassium 3.5 mmol/L (3.5-5.1)
[2018-12-19 07:49] LABS: CKMB Creatine Kinase MB 1.5 ng/mL (0.3-3.6); Troponin I 0.17 ng/mL (0.0-0.045)
[2018-12-19] MEDS: IPRATROPIUM BROM 0.5MG/2.5ML NEB PRN (08:55)
[2018-12-19] MEDS: ARFORMOTEROL TARTRATE 15 MCG/2 ML VIAL.NEB NEB SCH ×2 (08:55→20:45)
[2018-12-19] MEDS ORDERED: FOLIC ACID 5 MG/ML VIAL IVP SCH (09:00)
[2018-12-19] MEDS ORDERED: ENOXAPARIN 30 MG/0.3 ML SQ SCH (09:00)
[2018-12-19] MEDS: D5W 1,000 ML IV SCH ×2 (09:01→20:43)
[2018-12-19] MEDS: LORazepam 2 MG/ML VIAL IV PRN ×3 (09:13→16:41)
[2018-12-19] MEDS: THIAMINE 200 MG/2 ML INJ IVP SCH (09:14)
[2018-12-19] MEDS: PANTOPRAZOLE 40 MG INJ IVP SCH (09:15)
--- NOTE | 2018-12-19 09:15 | CON ---
Identification: 67-year-old male. Reason For Consult: Arrhythmia. History Of Present Illness: Mr. Briscoe is a 67-year-old man who has a severe alcohol abuse problem. He has cirrhosis. He has an official do not attempt resuscitate order. There are some medicines li sted as home medications, but he does not take either one of them. We do not think it has not been u pdated since April 2018. Mr. Briscoe was cardioverted, placed on amiodarone. Amiodarone is a probl ematic drug in a patient such as him with his cirrhosis. I would recommend we just give him a beta-b locker such as metoprolol as the only antiarrhythmic drug. Presently he is in sinus rhythm. He did not have ventricular tachycardia. He continues heavy alcohol use. His drug screen did not show any illicit substances. His serum alcohol level was very low. Physical Examination: General: He appears to be older than his stated age, slightly lethargic, able to answer questions. He has sunburn over his entire body. Lungs: Clear. Heart: Regular rate and rhythm. Abdomen: Soft. EXTREMITIES: Trace edema distal pulses diminished. Laboratory Data: Reveals a sodium of 160, that is down from what it was. His chloride level is 133. His troponin is 0.17. His total bilirubin level is elevated. His INR without any anticoagulant is 1.24, PT is 14.5. Impression: This patient has severe liver disease and atrial fibrillation. I think we should stop a miodarone and just give metoprolol as the only antiarrhythmic drug. HUBER/JAVI Voice ID: [id number] Report ID: [id number]
[2018-12-19] MEDS: levETIRAcetam 500 MG in NA CHLORIDE 0.9% 100 ML IV SCH ×2 (09:30→20:41)
[2018-12-19 09:34] LABS: Potassium 3.6 mmol/L (3.5-5.1)
[2018-12-19 09:48] LABS: Blood Morphology Comment NOT SEEN (NOT SEEN); Platelet Estimate DECR; Urine White Blood Cell Casts OK
[2018-12-19] MEDS: chlordiazePOXIDE HCl 25 MG CAP PO SCH ×3 (12:49→20:44)
[2018-12-19] MEDS ORDERED: VANCOMYCIN 1 GM in NA CHLORIDE 0.9% 250 ML IVPB SCH (13:00)
[2018-12-19 13:09] LABS: Potassium 4.3 mmol/L (3.5-5.1)
[2018-12-19] MEDS: D5W 300 ML IV SCH ×3 (14:00→14:38)
[2018-12-19] MEDS ORDERED: VANCOMYCIN 1.75 GM in NA CHLORIDE 0.9% 500 ML IVPB ONE (14:00)
[2018-12-19] MEDS: METOPROLOL TARTRATE 5 MG/5 ML INJ IV PRN ×2 (14:20→23:09)
[2018-12-19] MEDS ORDERED: D5W 1,000 ML IV SCH (15:00)
--- NOTE | 2018-12-19 15:23 | P.CNS ---
Date of Consult: 12/19/18 Reason for Consult: LEONARDO , hypernatremia Chief Complaint: Altered mental status History of Present Illness: pt is unable to provide Hx , Hx obtained from chart A 67 Y/o man with PMhx of Alcohol and tobacco abuse, AFib and cirrhosis Pt found unresponsive on the floor pt had afib with RVR , in ER na 164, cr 2.1 started on IVF, Up improving Allergies No Known Allergies Allergy (Verified 01/28/17 20:51) Home Medications: Doxycycline Hyclate 100 mg PO BID #14 capsule 04/30/18 Metoprolol Succinate [Toprol Xl*] 25 mg PO BEDTIME #30 tab 04/30/18 - Past Medical/Surgical History Diabetic: No -: Depression -: Chronic atrial fibrillation -: HTN -: Alcohol abuse -: Tobacco abuse -: Noncompliance with medication and follow up -: suicide attempt -: anxiety -: insomnia -: arthritis -: Cardiac ablation Psychosocial/ Personal History: Patient lives by himself. He has no family in the area. - Family History Mother Medical History: Heart disease Notes: Father Medical History: Heart disease Notes: - Social History Smoking Status: Unknown if ever smoked Alcohol use: Yes CD- Drugs: No Caffeine use: No Physical Examination Temp Pulse Resp BP Pulse Ox 97.4 F 150 H 28 H 111/75 100 12/19/18 12:00 12/19/18 14:20 12/19/18 14:00 12/19/18 14:20 12/19/18 09:00 General: Other (lethargic ) HEENT: Atraumatic Neck: Supple, Without JVD or thyroid abnormality Respiratory: Clear to auscultation bilaterally, Normal air movement Cardiovascular: No edema, Normal S1 S2, No gallops, No rubs, No murmurs, Irregular heart rate/rhythm Gastrointestinal: Normal bowel sounds, Soft and benign Laboratory Data (last 24 hrs) 12/18/18 16:34: PT 14.5 H, INR 1.24 12/18/18 16:34: WBC 10.4, Hgb 18.6 H, Hct 58.1 H, Plt Count 85 L 12/18/18 16:34: Sodium 164 H*, Potassium 3.1 L, BUN 42 H, Creatinine 2.13 H, Glucose 114 H, Magnesium 2.9 H D, Total Bilirubin 2.3 H, AST 89 H, ALT 48, Alkaline Phosphatase 67 12/18/18 16:15: APTT 31.8 - Problems (1) Acute renal failure Current Visit: Yes Status: Acute (2) Hypernatremia Current Visit: Yes Status: Acute Conclusions/Impression: LEONARDO resolved due to prerenal azotemia hypernatremia will increase D5w rate Afib with RVR on BB cardiology on board HX of Alcohol abuse Monitor for DT
--- NOTE | 2018-12-19 15:40 | EKG ---
Test Date: 2018-12-19 Test Time: 06:38:58 Certified Hearing Instrument Dispenser: DAPHNEY MEASUREMENT RESULTS: Intervals: Rate: 144 ID: QRSD: 28 QT: 292 QTc: 452 [place]: P: ID: QRS: 120 T: 61 INTERPRETIVE STATEMENTS: Atrial fibrillation with rapid ventricular response with premature ventricular or aberrantly conducted complexes ST abnormality, non specific Abnormal ECG Compared to ECG 12/18/2018 20:34:20 Ventricular premature complex(es) now present Indeterminate axis now present ST (T wave) deviation now present Sinus rhythm no longer present Electronically Signed On 12-19-18 15:40:01 CDT by Krunal Youngblood
--- NOTE | 2018-12-19 15:44 | EKG ---
Test Date: 2018-12-18 Test Time: 20:34:20 Music Adapter: MEASUREMENT RESULTS: Intervals: Rate: 77 MO: 124 QRSD: 114 QT: 438 QTc: 495 [place]: P: MO: 124 QRS: -70 T: 46 INTERPRETIVE STATEMENTS: Sinus rhythm with premature atrial complexes Left axis deviation Low voltage QRS Right bundle branch block Inferior infarct, age undetermined Abnormal ECG Compared to ECG 12/18/2018 20:26:33 Myocardial infarct finding now present Electronically Signed On 12-19-18 15:43:47 CDT by Krunal Youngblood
--- NOTE | 2018-12-19 15:44 | EKG ---
Test Date: 2018-12-18 Test Time: 20:26:33 Clinical Leader: MEASUREMENT RESULTS: Intervals: Rate: 79 [place]: 122 QRSD: 118 QT: 394 QTc: 451 [place]: P: [place]: 122 QRS: -81 T: 54 INTERPRETIVE STATEMENTS: Sinus rhythm with premature supraventricular complexes Left axis deviation Low voltage QRS Right bundle branch block Abnormal ECG Compared to ECG 12/18/2018 20:22:40 Atrial premature complex(es) now present Left-axis deviation now present Low QRS voltage now present Electronically Signed On 12-19-18 15:44:22 CDT by Krunal Youngblood
--- NOTE | 2018-12-19 15:45 | EKG ---
Test Date: 2018-12-18 Test Time: 20:22:40 Hammer Fitter: MEASUREMENT RESULTS: Intervals: Rate: 174 [place]: QRSD: 120 QT: 348 QTc: 592 [place]: P: 79 [place]: QRS: -20 T: 63 INTERPRETIVE STATEMENTS: Atrial flutter with 2:1 AV block Right bundle branch block Abnormal ECG Compared to ECG 12/18/2018 20:22:12 Right bundle-branch block now present Ventricular premature complex(es) no longer present Electronically Signed On 12-19-18 15:44:58 CDT by Krunal Youngblood
--- NOTE | 2018-12-19 15:46 | EKG ---
Test Date: 2018-12-18 Test Time: 20:22:12 Grinding Supervisor: MEASUREMENT RESULTS: Intervals: Rate: 155 MA: QRSD: 112 QT: 342 QTc: 549 [place]: P: MA: QRS: -36 T: 73 INTERPRETIVE STATEMENTS: Atrial flutter with 2:1 AV block Left axis deviation Low voltage QRS Right bundle branch block Abnormal ECG Compared to ECG 12/18/2018 20:10:20 Left-axis deviation now present Low QRS voltage now present Electronically Signed On 12-19-18 15:45:56 CDT by Krunal Youngblood
--- NOTE | 2018-12-19 15:47 | EKG ---
Test Date: 2018-12-18 Test Time: 20:10:20 Child Development Consultant: MULUGETA MEASUREMENT RESULTS: Intervals: Rate: 160 [place]: QRSD: 118 QT: 348 QTc: 567 [place]: P: MS: QRS: -22 T: 68 INTERPRETIVE STATEMENTS: Atrial flutter with 2:1 AV block Right bundle branch block Non specific ST and T abnormality Abnormal ECG Compared to ECG 12/18/2018 17:03:59 Sinus rhythm no longer present Electronically Signed On 12-19-18 15:46:59 CDT by Krunal Youngblood
--- NOTE | 2018-12-19 15:48 | EKG ---
Test Date: 2018-12-18 Test Time: 17:03:59 [place] Calciner: ANSON MEASUREMENT RESULTS: Intervals: Rate: 80 [place]: 144 QRSD: 114 QT: 414 QTc: 477 [place]: P: 62 [place]: 144 QRS: -74 T: 57 INTERPRETIVE STATEMENTS: Sinus rhythm with premature atrial complexes Possible Left atrial enlargement Left axis deviation Pulmonary disease pattern Right bundle branch block Inferior infarct, age undetermined Abnormal ECG Compared to ECG 12/18/2018 16:31:32 Atrial flutter with 2:1 AV block is no longer present Electronically Signed On 12-19-18 15:48:03 CDT by Krunal Youngblood
--- NOTE | 2018-12-19 15:49 | EKG ---
Test Date: 2018-12-18 Test Time: 16:31:32 Certified Alcohol Counselor: RV MEASUREMENT RESULTS: Intervals: Rate: 192 SD: 118 QRSD: 106 QT: 252 QTc: 450 [place]: P: 46 SD: 118 QRS: 240 T: 99 INTERPRETIVE STATEMENTS: Atrial flutter with 2:1 AV block Right bundle branch block Abnormal ECG Compared to ECG 11/11/2018 14:05:43 Sinus rhythm no longer present Atrial premature complex(es) no longer present Electronically Signed On 12-19-18 15:48:52 CDT by Krunal Youngblood
[2018-12-19] MEDS: METOPROLOL TAR 25 MG TAB PO SCH (17:24)
[2018-12-19 18:45] LABS: Phosphorus 3.6 mg/dL (2.5-4.9); Potassium 3.3 mmol/L (3.5-5.1)
[2018-12-19] MEDS: KCL 20 MEQ/100 mL IVPB 20 MEQ/100 ML BAG IV SCH ×2 (19:22→20:41)
--- NOTE | 2018-12-19 20:04 | P.PN ---
Subjective Date of Service: 12/19/18 Chief Complaint: Altered mental status Subjective: No new changes Review of Systems 10-point ROS is otherwise unremarkable Physical Examination - Vital Signs Temperature: 97.0 F Blood Pressure: 84/61 Pulse: 151 Respirations: 35 Pulse Ox (%): 98 - Physical Exam General: In no apparent distress, Other (Lethargic) HEENT: Atraumatic, PERRLA, EOMI Neck: Supple, JVD not distended Respiratory: Clear to auscultation bilaterally, Normal air movement Cardiovascular: Regular rate/rhythm, Normal S1 S2 Gastrointestinal: Normal bowel sounds, No tenderness - Studies Microbiology Data (last 24 hrs): 12/18/18 16:55 Blood - Blood Anaerobic Blood Culture - Final Assessment And Plan - Current Problems (Diagnosis) (1) Acute renal failure Current Visit: Yes Status: Acute (2) Hypernatremia Current Visit: Yes Status: Acute (3) Metabolic encephalopathy Current Visit: Yes Status: Acute (4) Thrombocytopenia Current Visit: Yes Status: Acute (5) Atrial fibrillation with rapid ventricular response Onset Date: 01/29/17 Current Visit: No Status: Acute (6) Dehydration Onset Date: 04/24/18 Current Visit: No Status: Acute (7) Alcohol dependence Onset Date: 01/29/17 Current Visit: No Status: Chronic Qualifiers: Substance use status: in withdrawal Complication of substance-induced condition: uncomplicated Qualified Code(s): F10.230 - Alcohol dependence with withdrawal, uncomplicated (8) Depression Onset Date: 01/29/17 Current Visit: No Status: Chronic Qualifiers: Depression Type: major depressive disorder Major depression recurrence: recurrent Active/Remission status: in full remission Qualified Code(s): F33.42 - Major depressive disorder, recurrent, in full remission (9) HTN (hypertension) Onset Date: 01/29/17 Current Visit: No Status: Chronic Qualifiers: Hypertension type: essential hypertension Qualified Code(s): I10 - Essential (primary) hypertension (10) Tobacco abuse Onset Date: 01/29/17 Current Visit: No Status: Chronic - Plan Continue to monitor in ICU Hydrate with IV half-normal saline. IV fluid to correct the hypernatremia and to treat acute renal failure. Nephrology on board, recommendations appreciated Monitor BMP q.4 hr. Target: Change serum sodium level <10-12 meq over 24 hrs. CIWA for impending alcohol withdrawal. IV thiamine and folic acid No indication for antibiotics at this time. Continue oral metoprolol to control heart rate. Anticoagulation has been has been avoided in the past secondary to his alcoholism and his risk of falls. Amiodarone has been avoided due to alcoholic liver disease. Monitor CBC. Avoid anticoagulants given thrombocytopenia.
[2018-12-20] MEDS: D5W 1,000 ML IV SCH ×5 (00:32→20:13)
[2018-12-20] MEDS ORDERED: DIGOXIN 0.25 MG/ML AMP IV STA (01:05)
[2018-12-20 01:19] LABS: Potassium 3.5 mmol/L (3.5-5.1)
[2018-12-20] MEDS ORDERED: KCL 20 MEQ/100 mL IVPB 20 MEQ/100 ML BAG IV SCH ×2 (02:00→08:00)
[2018-12-20] MEDS: METOPROLOL TARTRATE 5 MG/5 ML INJ IV PRN ×2 (04:48→10:26)
[2018-12-20] MEDS: METOPROLOL TAR 25 MG TAB PO SCH (05:03)
[2018-12-20 06:29] LABS: Absolute Lymphocytes (CBC) 1.5 K/uL (0.7-4.9); Basophils % 0.7 % (0-1.3); Hematocrit 45.2 % (39.6-49.0); Lymphocytes % 27.7 % (15.3-44.8); RBC Red Blood Cell Count 4.37 M/uL (4.33-5.43)
[2018-12-20 06:57] LABS: Albumin 2.8 g/dL (3.4-5.0); Bilirubin Total 1.9 mg/dL (0.2-1.0); Magnesium 2.1 mg/dL (1.8-2.4); Potassium 3.8 mmol/L (3.5-5.1); Protein, Total 6.3 g/dL (6.4-8.2)
[2018-12-20] MEDS: THIAMINE 200 MG/2 ML INJ IVP SCH (08:00)
[2018-12-20] MEDS: PANTOPRAZOLE 40 MG INJ IVP SCH (08:00)
[2018-12-20] MEDS: chlordiazePOXIDE HCl 25 MG CAP PO SCH ×4 (08:02→20:12)
[2018-12-20] MEDS: VANCOMYCIN 1.25 GM in NA CHLORIDE 0.9% 250 ML IVPB SCH (08:02)
[2018-12-20] MEDS: ARFORMOTEROL TARTRATE 15 MCG/2 ML VIAL.NEB NEB SCH ×2 (09:18→20:00)
[2018-12-20] MEDS: levETIRAcetam 500 MG in NA CHLORIDE 0.9% 100 ML IV SCH ×2 (09:46→20:10)
[2018-12-20] MEDS: FOLIC ACID 5 MG/ML VIAL IVP SCH (10:05)
--- NOTE | 2018-12-20 11:06 | P.PN ---
Subjective Date of Service: 12/20/18 Chief Complaint: Altered mental status Subjective: Improving Pt with alcohol abuse , found on the floor , Afib with RVR , Na 164 with Luz today More alert na down to 156 will cont D5w Afib with RVR , as per cardiology Physical Examination - Vital Signs Temperature: 97.9 F Blood Pressure: 107/67 Pulse: 141 Respirations: 25 Pulse Ox (%): 100 - Physical Exam General: Alert, In no apparent distress HEENT: Atraumatic Neck: Supple, Without JVD or thyroid abnormality Respiratory: Clear to auscultation bilaterally, Normal air movement Cardiovascular: No edema, Normal S1 S2, No gallops, No rubs, No murmurs, Irregular heart rate/rhythm Gastrointestinal: Normal bowel sounds, Soft and benign Musculoskeletal: No swelling - Studies Microbiology Data (last 24 hrs): 12/18/18 16:55 Blood - Blood Anaerobic Blood Culture - Final Assessment And Plan - Current Problems (Diagnosis) (1) Acute renal failure Current Visit: Yes Status: Acute (2) Hypernatremia Current Visit: Yes Status: Acute - Plan LUZ resolved due to prerenal azotemia hypernatremia due to dehydration will cont D5w rate Speech an swallow evaluation Afib with RVR on BB cardiology on board HX of Alcohol abuse Monitor for DT
--- NOTE | 2018-12-20 11:57 | PN ---
Mr. Briscoe goes in and out of atrial fibrillation. We are going to stop metoprolol and try Betapace in its place to see if we can manage to keep him in normal rhythm most of the time. He is not a good candidate for amiodarone. His sodium is starting to come down some. It was 156 yesterday. Today's is pending. He is not a candidate for chronic anticoagulation. HUBER/JAVI Voice ID: [id number] Report ID: [id number]
[2018-12-20] MEDS: SOTALOL HCL 80 MG TAB PO SCH ×2 (12:36→18:16)
--- NOTE | 2018-12-20 13:34 | P.PN ---
Subjective Date of Service: 12/20/18 Chief Complaint: Altered mental status Patient seen and examined at bedside. No family at bedside. Chart reviewed and case discussed with nursing staff. Patient more awake this morning. Able to follow commands. No acute events noted overnight. No evidence of alcohol withdrawal at this time. Review of Systems 10-point ROS is otherwise unremarkable Physical Examination - Vital Signs Temperature: 97.0 F Blood Pressure: 84/61 Pulse: 151 Respirations: 35 Pulse Ox (%): 98 - Physical Exam General: Alert, In no apparent distress HEENT: Atraumatic, PERRLA, EOMI Neck: Supple, JVD not distended Respiratory: Clear to auscultation bilaterally, Normal air movement Cardiovascular: Regular rate/rhythm, Normal S1 S2 Gastrointestinal: Normal bowel sounds, No tenderness Musculoskeletal: No tenderness Integumentary: No rashes Neurological: Normal speech, Normal tone, Normal affect Lymphatics: No axilla or inguinal lymphadenopathy - Studies Microbiology Data (last 24 hrs): 12/18/18 16:55 Blood - Blood Anaerobic Blood Culture - Final Assessment And Plan - Current Problems (Diagnosis) (1) Hypernatremia Current Visit: Yes Status: Acute Plan: Continue to hydrate with IV fluids. Nephrology on board, recommendations appreciated Monitor BMP q.4 hr. Target: Change serum sodium level <10-12 meq over 24 hrs (2) Metabolic encephalopathy Current Visit: Yes Status: Acute Plan: Likely secondary to hypernatremia along with alcohol abuse/withdrawal. Improving Continue to monitor in ICU (3) Thrombocytopenia Current Visit: Yes Status: Acute Plan: Likely secondary to alcohol use Continue to monitor (4) Atrial fibrillation with rapid ventricular response Onset Date: 01/29/17 Current Visit: No Status: Acute Plan: He continues to be in atrial fibrillation with rapid ventricular response. -cardiology on board, recommendations appreciated -Continue oral metoprolol to control heart rate. -Anticoagulation has been has been avoided in the past secondary to his alcoholism and his risk of falls. -Amiodarone has been avoided due to alcoholic liver disease. (5) Dehydration Onset Date: 04/24/18 Current Visit: No Status: Acute (6) Alcohol dependence Onset Date: 01/29/17 Current Visit: No Status: Chronic Plan: CIWA for impending alcohol withdrawal. IV thiamine and folic acid Qualifiers: Substance use status: in withdrawal Complication of substance-induced condition: uncomplicated Qualified Code(s): F10.230 - Alcohol dependence with withdrawal, uncomplicated (7) Depression Onset Date: 01/29/17 Current Visit: No Status: Chronic Qualifiers: Depression Type: major depressive disorder Major depression recurrence: recurrent Active/Remission status: in full remission Qualified Code(s): F33.42 - Major depressive disorder, recurrent, in full remission (8) HTN (hypertension) Onset Date: 01/29/17 Current Visit: No Status: Chronic Qualifiers: Hypertension type: essential hypertension Qualified Code(s): I10 - Essential (primary) hypertension (9) Tobacco abuse Onset Date: 01/29/17 Current Visit: No Status: Chronic (10) Acute renal failure Current Visit: Yes Status: Resolved - Plan DVT prophylaxis: SCDs; Avoid anticoagulants given thrombocytopenia GI prophylaxis: Protonix Diet: NPO Disposition: Pending symptomatic improvement. Will need speech therapy/ physical therapy/Occupational therapy evaluation.
[2018-12-20 18:39] LABS: Potassium 3.3 mmol/L (3.5-5.1)
[2018-12-20] MEDS: KCL 20 MEQ/100 mL IVPB 20 MEQ/100 ML BAG IV SCH ×2 (20:10→22:11)
[2018-12-21] MEDS: VANCOMYCIN 1.25 GM in NA CHLORIDE 0.9% 250 ML IVPB SCH (02:06)
[2018-12-21 05:30] LABS: Absolute Lymphocytes (CBC) 1.5 K/uL (0.7-4.9); Basophils % 1.1 % (0-1.3); Lymphocytes % 34.2 % (15.3-44.8); MPV 11.2 fL (7.6-11.3); RBC Red Blood Cell Count 4.34 M/uL (4.33-5.43)
[2018-12-21 05:50] LABS: ALT/SGPT 35 U/L (12-78); AST/SGOT 75 U/L (15-37); Albumin 2.7 g/dL (3.4-5.0); Alkaline Phosphatase 50 U/L (45-117); BUN Blood Urea Nitrogen 10 mg/dL (7-18); Bicarbonate 27 mmol/L (21-32); Bilirubin Total 1.9 mg/dL (0.2-1.0); Glucose Level 112 mg/dL (74-106); Magnesium 1.6 mg/dL (1.8-2.4); Potassium 3.4 mmol/L (3.5-5.1); Protein, Total 5.8 g/dL (6.4-8.2); Sodium Level 145 mmol/L (136-145)
[2018-12-21] MEDS: SOTALOL HCL 80 MG TAB PO SCH ×2 (06:03→17:29)
[2018-12-21] MEDS ORDERED: MAGNESIUM SULFATE 1 gm IVPB 1 GM/100 ML BAG IV ONE (06:14)
[2018-12-21] MEDS: KCL 20 MEQ/100 mL IVPB 20 MEQ/100 ML BAG IV SCH ×2 (06:23→09:39)
[2018-12-21] MEDS: ARFORMOTEROL TARTRATE 15 MCG/2 ML VIAL.NEB NEB SCH ×2 (07:28→20:00)
[2018-12-21] MEDS: IPRATROPIUM BROM 0.5MG/2.5ML NEB PRN (07:28)
[2018-12-21] MEDS: chlordiazePOXIDE HCl 25 MG CAP PO SCH ×3 (08:43→17:00)
[2018-12-21] MEDS: FOLIC ACID 5 MG/ML VIAL IVP SCH (09:00)
[2018-12-21] MEDS: levETIRAcetam 500 MG in NA CHLORIDE 0.9% 100 ML IV SCH ×2 (09:27→20:52)
[2018-12-21] MEDS: THIAMINE 200 MG/2 ML INJ IVP SCH (09:27)
[2018-12-21] MEDS: PANTOPRAZOLE 40 MG INJ IVP SCH (09:27)
[2018-12-21] MEDS: D5W 1,000 ML IV SCH ×2 (09:36→21:00)
[2018-12-21] MEDS ORDERED: AMIODARONE HCL 150 MG/3 ML INJ IV ONE (13:16)
[2018-12-21] MEDS: FOLIC ACID 1 MG in NA CHLORIDE 0.9% 50 ML IV SCH (13:55)
--- NOTE | 2018-12-21 15:05 | P.PN ---
Subjective Date of Service: 12/21/18 Chief Complaint: Altered mental status Pt seen and examined at bedside. No C.o offer overnight. doing well overall. Has been having fluctuating HR from 110-180's but remains asymptomatic. Review of Systems 10-point ROS is otherwise unremarkable Physical Examination - Vital Signs Temperature: 98.7 F Blood Pressure: 121/85 Pulse: 112 Respirations: 23 Pulse Ox (%): 97 - Physical Exam General: Alert, In no apparent distress HEENT: Atraumatic, PERRLA, EOMI Neck: Supple, JVD not distended Respiratory: Clear to auscultation bilaterally, Normal air movement Cardiovascular: Normal S1 S2, Irregular heart rate/rhythm Gastrointestinal: Normal bowel sounds, No tenderness Musculoskeletal: No tenderness Integumentary: No rashes Neurological: Normal speech, Normal tone, Normal affect Lymphatics: No axilla or inguinal lymphadenopathy - Studies Microbiology Data (last 24 hrs): 12/18/18 16:37 Blood - Blood Aerobic Blood Culture - Final Staph Epidermidis 12/18/18 16:37 Blood - Blood Gram Stain - Final 12/18/18 16:37 Blood - Blood Anaerobic Blood Culture - Final Staph Epidermidis 12/18/18 16:37 Blood - Blood Gram Stain - Final 12/18/18 16:55 Blood - Blood Aerobic Blood Culture - Final Staph Epidermidis 12/18/18 16:55 Blood - Blood Gram Stain - Final 12/18/18 16:55 Blood - Blood Anaerobic Blood Culture - Final Medications List Reviewed: Yes Assessment And Plan - Current Problems (Diagnosis) (1) Atrial fibrillation with rapid ventricular response Onset Date: 01/29/17 Current Visit: No Status: Acute Plan: Pt continues to be in atrial fibrillation with rapid ventricular response with HR of 110-180's -cardiology on board, recommendations appreciated -Switched to PO betapace and PRN IV metoprolol. -Stopped amniodorone ggt due to CLD 2.2 to Cirrhosis -Anticoagulation has been has been avoided in the past secondary to his alcoholism and his risk of falls. (2) Metabolic encephalopathy Current Visit: Yes Status: Acute Plan: Likely secondary to hypernatremia vs alcohol encephalopathy. Improving -AAO x 3 now -Imaging studies WNL -Continue to monitor in ICU (3) Acute renal failure Current Visit: Yes Status: Resolved Plan: Pt with LEONARDO 2.2 to dehydration 2.2 to Alcohol Abuse -IV d5W for now -BUN/CR improving Qualifiers: Acute renal failure type: unspecified Qualified Code(s): N17.9 - Acute kidney failure, unspecified (4) Hypernatremia Current Visit: Yes Status: Acute Plan: 2.2 to dehydration -Currently in IV d5W will continue at this time -NA is improving today (5) Thrombocytopenia Current Visit: Yes Status: Chronic (6) Alcohol dependence Onset Date: 01/29/17 Current Visit: No Status: Chronic Qualifiers: Substance use status: in withdrawal Complication of substance-induced condition: uncomplicated Qualified Code(s): F10.230 - Alcohol dependence with withdrawal, uncomplicated (7) HTN (hypertension) Onset Date: 01/29/17 Current Visit: No Status: Chronic Qualifiers: Hypertension type: essential hypertension Qualified Code(s): I10 - Essential (primary) hypertension (8) Tobacco abuse Onset Date: 01/29/17 Current Visit: No Status: Chronic - Plan DVT prophylaxis: SCDs; Avoid anticoagulants given thrombocytopenia GI prophylaxis: Protonix Diet: FLD Disposition: Pending symptomatic improvement. pending speech therapy/physical therapy/Occupational therapy evaluation. Discharge Plan: Home Plan to discharge in: Greater than 2 days - Code Status/Comfort Care Code Status Assessed: Yes Critical Care: Yes
[2018-12-21] MEDS ORDERED: KCL 20 MEQ/100 mL IVPB 20 MEQ/100 ML BAG IV SCH (21:00)
[2018-12-21] MEDS ORDERED: NACHLORIDE 0.45% 1,000 ML IV SCH (23:45)
[2018-12-22] MEDS: LORazepam 2 MG/ML VIAL IV PRN (03:29)
--- NOTE | 2018-12-22 03:58 | PN ---
Date of Progress Note: 12/21/2018 Chief Complaint: Hyperkalemia, hyperosmolar. Subjective: Patient is on D5W. Patient is in ICU for treatment of atrial fibrillation with rapid ve ntricular response. Review of Systems: Patient denies fever, chills. Physical Examination: Lungs: Clear to auscultation bilaterally. Heart: S1, S2. Abdomen: Soft, benign. Extremities: No edema. Impression And Plan: 1.Acute kidney injury, nonoliguric secondary to prerenal azotemia, resolved. 2.Hypernatremia due to dehydration. Patient will continue IV fluids. Adjust fluids according to la b results. 3.Atrial fibrillation with rapid ventricular response and beta-rosanne. Cooking Chef is following t he patient. 4.History of alcohol abuse. Monitor for BT per primary team. KATHLEEN/MODL Voice ID: [id number] Report ID: [id number]
[2018-12-22 05:28] LABS: Absolute Lymphocytes (CBC) 1.3 K/uL (0.7-4.9); Basophils % 0.8 % (0-1.3); Hematocrit 41.6 % (39.6-49.0); Lymphocytes % 29.1 % (15.3-44.8); MPV 10.7 fL (7.6-11.3); RBC Red Blood Cell Count 4.16 M/uL (4.33-5.43)
[2018-12-22 05:51] LABS: ALT/SGPT 34 U/L (12-78); AST/SGOT 70 U/L (15-37); Albumin 2.6 g/dL (3.4-5.0); Alkaline Phosphatase 46 U/L (45-117); BUN Blood Urea Nitrogen 10 mg/dL (7-18); Bicarbonate 22 mmol/L (21-32); Bilirubin Total 1.7 mg/dL (0.2-1.0); Glucose Level 88 mg/dL (74-106); Magnesium 1.6 mg/dL (1.8-2.4); Potassium 3.5 mmol/L (3.5-5.1); Protein, Total 5.8 g/dL (6.4-8.2); Sodium Level 142 mmol/L (136-145)
[2018-12-22] MEDS: SOTALOL HCL 80 MG TAB PO SCH (06:20)
[2018-12-22 06:24] VITALS: BMI 23.9
[2018-12-22] MEDS ORDERED: MAGNESIUM SULFATE 1 gm IVPB 1 GM/100 ML BAG IV ONE ×2 (07:00→13:09)
[2018-12-22] MEDS ORDERED: KCL 20 MEQ/100 mL IVPB 20 MEQ/100 ML BAG IV SCH ×2 (08:00→11:00)
[2018-12-22] MEDS: ARFORMOTEROL TARTRATE 15 MCG/2 ML VIAL.NEB NEB SCH (08:00)
[2018-12-22 08:25] VITALS: O2SAT 100
[2018-12-22] MEDS: PANTOPRAZOLE 40 MG INJ IVP SCH (08:38)
[2018-12-22] MEDS: THIAMINE 200 MG/2 ML INJ IVP SCH (08:39)
[2018-12-22] MEDS ORDERED: POTASSIUM CL SA 10 MEQ TAB PO ONE ×2 (08:47→12:51)
[2018-12-22] MEDS: levETIRAcetam 500 MG in NA CHLORIDE 0.9% 100 ML IV SCH (09:00)
[2018-12-22] MEDS ORDERED: levoFLOXacin 750 MG TAB PO SCH (09:00)
[2018-12-22] MEDS: FOLIC ACID 1 MG in NA CHLORIDE 0.9% 50 ML IV SCH (10:10)
--- NOTE | 2018-12-22 10:12 | PN ---
Date of Progress Note: 12/22/2018 Subjective: Mr. Briscoe has been in the hospital for altered mental status. History of alcohol abuse . He is a DNR. He has had cirrhosis, depression and hypertension. He is status post ablation in th e past for atrial fibrillation. He has been in atrial fibrillation since admission. He was placed o n Betapace 80 mg 1 p.o. b.i.d. Today, he is actually in normal sinus rhythm. The patient is not a g ood candidate for anticoagulation or amiodarone because of his cirrhosis. An echocardiogram is pendi ng today. We will continue the Betapace as is. MARILIN/JAVI Voice ID: [id number] Report ID: [id number]
--- NOTE | 2018-12-22 11:51 | ECHO ---
HEIGHT: 5 ft 11 in WEIGHT: 171 lb 6.4 oz DATE OF STUDY: 12/22/[address]: Se Erazo MD 2-DIMENSIONAL: YES M.MODE: YES DOPPLER: YES COLOR FLOW: YES TDS: NO PORTABLE: YES DEFINITY: NO BUBBLE STUDY: NO DIAGNOSIS: ATRIAL FIBRILLATION CARDIAC HISTORY: CATHERIZATION: NO SURGERY: NO PROSTHETIC VALVE: NO PACEMAKER: NO MEASUREMENTS (cm) DIASTOLIC (NORMALS) SYSTOLIC (NORMALS) IVSd 0.8 (0.6-1.2) LA Diam (1.9-4.0) LVEF 59% LVIDd 3.0 (3.5-5.7) LVIDs 2.1 (2.0-3.5) %FS 30% LVPWd 0.8 (0.6-1.2) Ao Diam 2.8 (2.0-3.7) 2 DIMENSIONAL ASSESSMENT: RIGHT ATRIUM: NORMAL LEFT ATRIUM: NORMAL RIGHT VENTRICLE: NORMAL LEFT VENTRICLE: NORMAL TRICUSPID VALVE: NORMAL MITRAL VALVE: NORMAL PULMONIC VALVE: NORMAL AORTIC VALVE: NORMAL PERICARDIAL EFFUSION: NONE AORTIC ROOT: NORMAL LEFT VENTRICULAR WALL MOTION: NORMAL. DOPPLER/COLOR FLOW: NORMAL. COMMENTS: NORMAL 2D ECHO WITH DOPPLER. NO WALL MOTION ABNORMALITY. NO EFFUSION. TECHNOLOGIST: ZULMA PRASAD
[2018-12-22 12:48] VITALS: BP 152/84; TEMP 97.5
--- NOTE | 2018-12-22 12:59 | P.PN ---
Subjective Date of Service: 12/22/18 Chief Complaint: Altered mental status Pt seen and examined at bedside. Chart Reveiwed. Case DW with Cardiology. No C.o offer overnight. doing well overall. Pt converted to Sinus rhythm now Review of Systems 10-point ROS is otherwise unremarkable Physical Examination - Vital Signs Temperature: 97.5 F Blood Pressure: 152/84 Pulse: 60 Respirations: 18 Pulse Ox (%): 98 - Physical Exam General: In no apparent distress, Oriented x2 Neck: Supple, JVD not distended Respiratory: Clear to auscultation bilaterally, Normal air movement Cardiovascular: Regular rate/rhythm, Normal S1 S2 Gastrointestinal: Normal bowel sounds, No tenderness Musculoskeletal: No tenderness Integumentary: No rashes Neurological: Normal speech, Normal tone, Normal affect Lymphatics: No axilla or inguinal lymphadenopathy - Studies Microbiology Data (last 24 hrs): 12/18/18 16:37 Blood - Blood Aerobic Blood Culture - Final Staph Epidermidis 12/18/18 16:37 Blood - Blood Gram Stain - Final 12/18/18 16:37 Blood - Blood Anaerobic Blood Culture - Final Staph Epidermidis 12/18/18 16:37 Blood - Blood Gram Stain - Final 12/18/18 16:55 Blood - Blood Aerobic Blood Culture - Final Staph Epidermidis 12/18/18 16:55 Blood - Blood Gram Stain - Final 12/18/18 16:55 Blood - Blood Anaerobic Blood Culture - Final Medications List Reviewed: Yes Assessment And Plan - Current Problems (Diagnosis) (1) Bacteremia Current Visit: Yes Status: Acute Plan: Blood culture + for staph epidermis -For now on PO levaquin (2) Atrial fibrillation with rapid ventricular response Onset Date: 01/29/17 Current Visit: No Status: Acute Plan: Initially atrial fibrillation with rapid ventricular response with HR of 110-180 's. Now In Sinus rhythm -cardiology on board, recommendations appreciated -PO betapace now and PRN IV metoprolol. -Stopped amniodorone ggt due to CLD 2.2 to Cirrhosis -Anticoagulation has been has been avoided in the past secondary to his alcoholism and his risk of falls. (3) Metabolic encephalopathy Current Visit: Yes Status: Acute Plan: Likely secondary to hypernatremia vs alcohol encephalopathy. Improving -AAO x 3 now -Imaging studies WNL -transfer to floor (4) Acute renal failure Current Visit: Yes Status: Resolved Plan: Pt with LEONARDO 2.2 to dehydration 2.2 to Alcohol Abuse -BUN/CR improving Qualifiers: Acute renal failure type: unspecified Qualified Code(s): N17.9 - Acute kidney failure, unspecified (5) Hypernatremia Current Visit: Yes Status: Acute Plan: 2.2 to dehydration -Now resolved (6) Thrombocytopenia Current Visit: Yes Status: Chronic (7) Alcohol dependence Onset Date: 01/29/17 Current Visit: No Status: Chronic Qualifiers: Substance use status: in withdrawal Complication of substance-induced condition: uncomplicated Qualified Code(s): F10.230 - Alcohol dependence with withdrawal, uncomplicated (8) HTN (hypertension) Onset Date: 01/29/17 Current Visit: No Status: Chronic Qualifiers: Hypertension type: essential hypertension Qualified Code(s): I10 - Essential (primary) hypertension (9) Tobacco abuse Onset Date: 01/29/17 Current Visit: No Status: Chronic - Plan DVT prophylaxis: SCDs; Avoid anticoagulants given thrombocytopenia GI prophylaxis: Protonix Diet: FLD Disposition: Pending symptomatic improvement. pending speech therapy/physical therapy/Occupational therapy evaluation. Discharge Plan: Home Plan to discharge in: Greater than 2 days - Code Status/Comfort Care Code Status Assessed: Yes Critical Care: Yes
[2018-12-22] MEDS ORDERED: PANTOPRAZOLE 40MG TABLET PO SCH (16:30)
--- NOTE | 2018-12-22 17:32 | P.DS ---
Admission Date: 12/18/18 Discharge Date: 12/22/18 Disposition: Reason for Admission: Altered mental status Consultations: Cardiology, Nephrology. - Problems (1) Bacteremia Status: Acute (2) Atrial fibrillation with rapid ventricular response Onset Date: 01/29/17 Status: Acute (3) Metabolic encephalopathy Status: Acute (4) Acute renal failure Status: Resolved Qualifiers: Acute renal failure type: unspecified Qualified Code(s): N17.9 - Acute kidney failure, unspecified (5) Hypernatremia Status: Acute (6) Thrombocytopenia Status: Chronic (7) Alcohol dependence Onset Date: 01/29/17 Status: Chronic Qualifiers: Substance use status: in withdrawal Complication of substance-induced condition: uncomplicated Qualified Code(s): F10.230 - Alcohol dependence with withdrawal, uncomplicated (8) HTN (hypertension) Onset Date: 01/29/17 Status: Chronic Qualifiers: Hypertension type: essential hypertension Qualified Code(s): I10 - Essential (primary) hypertension (9) Tobacco abuse Onset Date: 01/29/17 Status: Chronic Brief History of Present Illness: 67-year-old known alcoholic was brought to the emergency department because patient was found on the floor in his home confused. Per report, family was checking on him and found him on the floor, confused, unable to get up, disheveled. Family called out to EMS who brought him to the emergency department. He was in SVT with a heart rate of 192 on arrival. His heart rate responded to IV metoprolol and decreased to the 80s. Patient was very confused and could not provide any history. Blood work in the ED revealed severe hypernatremia and acute renal failure. No witnessed seizures, no witnessed fall. CT head, cervical spine, thorax and abdomen did not show any traumatic injury. No acute disease. His alcohol level was less than 3. It is unknown how long patient had been on the floor. He has no leukocytosis, UA is pending. Patient is admitted for further management of metabolic encephalopathy. Hospital Course: Pt was admitted to the hospital for Afib with RVR and Hypernatremia. 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 Pt converted to sinus Rhythm on 12/21/18 after receiving 4 doses of betapace. While here pt had quite fluctuating HR from 39-190's before converting to Sinus rhythm. Pt however remained asymptomatic. Pt had ECHO done here in the hospital and found to have Diastolic and Systolic Dysfunction. Once pt converted cardiology reccs pt can be transferred to the floor and continue with betapace. Pt was transferred to the floor and was doing well. However after the transfer pt worked with PT which he was not able to participate much with. He was placed back on bed and at which time become unresponsive and stopped breathing. Code blue was called as patient did not have a pulse. Pt had one round of CPR when nurse discovered that pt is DNR/DNI. Thus compression were stopped and pt passed Naturally. Pt had vfib as initial rhythm. Pt also was found to be hypernatremic, Pancytopenic and bacteremic while here in the hospital. Pt Electrolyte imbalance was replaced and Bactermia was treated with IV abx initially and was switched to PO levaquin for staph Epidermis. Pt had poor prognosis given his poor compliance with medication and alcohol abuse. family was in understanding of his status thus had made patient DNR/DNI. Family was contacted when patient passed and informed of the events and choose [facility]. Pt was transferred there. Please refer to the Daily PN and H&P for a more detailed Daily treatment plan. Vital Signs/Physical Exam: Temp Pulse Resp BP Pulse Ox 97.5 F 60 18 152/84 H 98 12/22/18 13:01 12/22/18 13:01 12/22/18 13:01 12/22/18 13:01 12/22/18 13:01 Other Physical/Emotional Findings: Pt Laboratory Data at Discharge: WBC 4.5 K/uL (4.3-10.9) 12/22/18 05:10 Hgb 14.1 g/dL (13.6-17.9) 12/22/18 05:10 Hct 41.6 % (39.6-49.0) 12/22/18 05:10 Plt Count 51 K/uL (152-406) L 12/22/18 05:10 PT 14.5 SECONDS (9.5-12.5) H 12/18/18 16:34 INR 1.24 12/18/18 16:34 APTT 31.8 SECONDS (24.3-36.9) 12/18/18 16:15 Sodium 142 mmol/L (136-145) 12/22/18 05:10 Potassium 3.5 mmol/L (3.5-5.1) 12/22/18 05:10 BUN 10 mg/dL (7-18) 12/22/18 05:10 Creatinine 0.74 mg/dL (0.55-1.3) 12/22/18 05:10 Glucose 88 mg/dL (74-106) 12/22/18 05:10 Phosphorus 3.6 mg/dL (2.5-4.9) 12/19/18 17:58 Magnesium 1.6 mg/dL (1.8-2.4) L 12/22/18 05:10 Total Bilirubin 1.7 mg/dL (0.2-1.0) H 12/22/18 05:10 AST 70 U/L (15-37) H 12/22/18 05:10 ALT 34 U/L (12-78) 12/22/18 05:10 Alkaline Phosphatase 46 U/L (45-117) 12/22/18 05:10 Troponin I 0.17 ng/mL (0.0-0.045) H 12/19/18 07:09 Home Medications: NK [No Home Meds] 12/20/18
[2018-12-22] MEDS ORDERED: SOTALOL HCL 80 MG TAB PO SCH (18:00)
--- NOTE | 2018-12-22 18:03 | PN ---
Date of Progress Note: 12/22/2018 Subjective: Patient was admitted with alcohol intoxication, acute kidney injury secondary to prerena l kidney function, has been improved. Physical Examination: Vital Signs: Blood pressure 152/84, pulse of 60. Afebrile. Patient had good urine output of 1500. Chest: Clear to auscultation. Heart: S1, S2. Regular. Abdomen: Soft, nontender. Extremities: No edema. Neurologic: Patient is still confused. Laboratory Data: H and H 14.1/41.6, dropping from 18.6/58.1. Sodium 142, potassium 3.5, bicarb 22, BUN 10, creatinine 0.7, calcium 8.4, magnesium 1.6. Medications: Current medications the patient on, its include IV fluid normal saline at 75 per hour, Levaquin 750, daily breathing treatment, sotalol, Keppra, lorazepam, folic acid, magnesium sulfate, K Cl, multivitamin. Assessment And Plan: 1.Acute kidney injury secondary to prerenal dehydration, recovered, resolved. I am going to go ahea d and decrease IV fluid to 50 per hour. 2.Hypokalemia and hypomagnesemia. We will supplement. 3.Hypertension, not controlled. We will decrease IV fluid. We will follow up. 4.Alcohol intoxication. Follow up with primary. RUDY Voice ID: [id number] Report ID: [id number]
[2018-12-22] MEDS ORDERED: levETIRAcetam 500 MG TAB PO SCH (21:00)
[2018-12-23] MEDS ORDERED: THIAMINE HCL 100 MG TABLET PO SCH (09:00)
[2018-12-23] MEDS ORDERED: MULTIVITAMIN TAB PO SCH (09:00)
[2018-12-23] MEDS ORDERED: FOLIC ACID 1 MG TABLET PO SCH (09:00)
== END 2018-12-22 17:15 | disposition expired | DRG 308 ==
LOC: ER 16:27 → ERHOLD 18:32 → 3RD-ICU 19:33 → 4TH 12-22 13:48
PROVIDERS: ADMIT Family Medicine; ATTEND Internal Medicine
PROC: 5A2204Z Restoration of Cardiac Rhythm, Single (ICD-10-PCS; principal; 2018-12-18)
DX: I48.2 Chronic atrial fibrillation (principal); I50.43 Acute on chronic combined systolic (congestive) and diastolic (congestive) heart failure; G93.41 Metabolic encephalopathy; N17.9 Acute kidney failure, unspecified; E87.0 Hyperosmolality and hypernatremia; F10.239 Alcohol dependence with withdrawal, unspecified; D61.818 Other pancytopenia; R78.81 Bacteremia; I47.1 Supraventricular tachycardia; F32.9 Major depressive disorder, single episode, unspecified; F10.10 Alcohol abuse, uncomplicated; F17.200 Nicotine dependence, unspecified, uncomplicated; F41.9 Anxiety disorder, unspecified; D69.6 Thrombocytopenia, unspecified; F10.229 Alcohol dependence with intoxication, unspecified; K70.30 Alcoholic cirrhosis of liver without ascites; Z66 Do not resuscitate; R56.9 Unspecified convulsions; I11.0 Hypertensive heart disease with heart failure
CPT/HCPCS: 36415; 51702; 70450; 71045; 71250; 72125; 80048; 80053; 80076; 80202; 80307; 80320; 80329; 81003; 82140; 82550; 82553; 82962; 83605; 83735; 83880; 84100; 84132; 84145; 84439; 84443; 84484; 85025; 85610; 85730; 87040; 87070; 87077; 87186; 87205; 92610; 92960; 93005; 93306; 94640; 96365; 96367; 96368; 96375; 99291; 99292; C9113; J0282; J0692; J1160; J1650; J1953; J3411; J3475; J7030; J7605